=== PATIENT | female | born 1965 | race Caucasian/White ===

== ENCOUNTER 2023-01-20 14:00 | Outpatient (RCR) | payer OTHER, BC, SELFPAY | END 2023-05-01 11:03 | disposition home or self-care (01) | PROVIDERS: PCP Family Medicine; Visit Provider Physician Assistant | DX: M54.12 Radiculopathy, cervical region (principal); Z51.89 Encounter for other specified aftercare | CPT/HCPCS: 97110; 97140; 97162; 97530 ==

== ENCOUNTER 2023-06-12 09:05 | Outpatient (CLI) | payer OTHER, BC, SELFPAY ==
--- OUTSIDE RECORDS SUMMARY | 2023-06-12 09:08 | XMS_ITS | Patient Health Record ---
Author Name Unknown Organization [facility] Address [address] [facility] [address] [place] [address] Care Team Providers Care Rap Artist Name Role Phone Hayden Angelo Primary Care Provider UnavailMick Kelly Unavailable [phone] Misael Wood PA-C Unavailable Unavailable Carlos Duncan Unavailable [phone] Kray Birmingham Unavailable [phone] Vicki Castanon Unavailable [phone] Ruth Crespo Unavailable [phone] Ingrid Constantino Unavailable [phone] ALLERGIES No Known Allergies REASON FOR REFERRAL Reason 03/14 Submitted onli ne with [facility] PT and OT: [facility] CERVICAL Diagnosis 1 Neck pain (M54.2) Diagnosis 2 Dorsalgia, unspecifi ed (M54.9) Diagnosis 3 Radiculopathy, cervi elvis region (M54.12) Referral Organization [facility] Referring Provider First Name Mick Referring Provider Last Name Stewart Referring Provider Speciality Occupation al Medicine Referred Organization [facility] Referred Provider Brenna Capps Referred Address [address] [facility] [address],[place], [place],[address], Referred Provider Specialty Rehabilitati on General Notes Joellen Suarez 023 10:40:45 AM >Submited to DOL [id number] Becki 04/02/2023 02:43:35 PM >revieved DOl pa auth # [id number] ok to Moriah glez Katie 04/14/2023 10:02:26 AM >Therapy is already scheduled. Referral Priority Routine Reason WC DOL cpt code 9716 3 and 96669 x1 each , cpt code 90320 x72, cpt code 56632 x24 and 42108 x24 Diagnosis 1 Radiculopathy, cervi elvis region (M54.12) Referral Organization [facility] Referring Provider First Name Mick Referring Provider Last Name Stewart Referring Provider Speciality Occupation al Medicine Referred Organization [facility] Referred Provider Mick William Referred Address [address] [place] [address],[place], [place],[address], Referred Provider Specialty Occupational Medicine Referral Priority Routine MEDICATIONS Medication SIG (Take, Route, Fr equency, Duration) Notes Start Date End Date Status Naproxen 250 MG 1 tablet with food o r milk Orally Twice a day Active hydrOXYzine HCl 25 MG 1 tablet as needed Orally every 8 hrs Active BuPROPion HBr 2x/day Active SOCIAL HISTORY Sex Assigned At : Social History Observation Description Sex Assigned At Unknown PROBLEMS Problem Type ICD Code Onset Dates Problem Status W/U Status Risk SNOMED Code Notes Problem Radiculopathy, cervical region (M54.12) Active confirmed Cervical radiculopathy (51108470) Problem Dorsalgia, unspecified (M54.9) Active confirmed Backache (413557050) Problem Neck pain (M54.2) Active confirmed Neck pain (34178702) VITAL SIGNS Blood pressure diastolic 86 mm Hg 03/14/2023 Height 5ft 7in in 03/14/2023 Blood pressure systolic 124 mm Hg 03/14/2023 Weight 186.6 lbs 03/14/2023 BMI 29.22 kg/m2 03/14/2023 Encounters Encounter Location Date Provider Diagnosis [facility] [address] [place] [address] [address] [place] [address] 03/14/2023 Mick William [facility] [address] [place] [address] [address] [place] [address] 01/08/2023 Carlos Duncan [facility] [address] [place] [address] 04/22/2023 Ingrid Constantino Radiculopathy, cervical region M54.12 ; Neck pain M54.2 and Dorsalgia, unspecified M54.9 [facility] [address] [place] [address] 04/24/2023 Vicki Teachout Neck pain M54.2 ; Dorsalgia, unspecified M54.9 and Radiculopathy, cervical region M54.12 [facility] [address] [facility] [place] [address] 04/30/2023 Kary Birmingham Dorsalgia, unspecified M54.9 and Radiculopathy, cervical region M54.12 [facility] [address] [facility] [place] [address] 05/02/2023 Kary Birmingham [facility] [address] [facility] [place] [address] 05/09/2023 Ingrid Becken Dorsalgia, unspecified M54.9 and Radiculopathy, cervical region M54.12 [facility] [address] [place] [address] 05/13/2023 Ruth Crespo [facility] [address] [place] [address] 05/15/2023 Vicki Teachout [facility] [address] [facility] [place] [address] 05/19/2023 Ruth Crespo [facility] [address] [place] [address] 05/21/2023 Ruth Crespo [facility] [address] [place] [address] 05/26/2023 Ruth Crespo Dorsalgia, unspecified M54.9 and Radiculopathy, cervical region M54.12 [facility] [address] [place] [address] 05/29/2023 Vicki Teachout Dorsalgia, unspecified M54.9 ; Cervicalgia M54.2 and Radiculopathy, cervical region M54.12 [facility] [address] [facility] [place] [address] 06/03/2023 Ingrid Becken Dorsalgia, unspecified M54.9 ; Cervicalgia M54.2 and Radiculopathy, cervical region M54.12 [facility] [address] [place] [address] 06/06/2023 Ingrid Banguraderek Dorsalgia, unspecified M54.9 ; Cervicalgia M54.2 and Radiculopathy, cervical region M54.12 [facility] [address] [place] [address] 06/10/2023 Ruth Cherie Dorsalgia, unspecified M54.9 ; Cervicalgia M54.2 and Radiculopathy, cervical region M54.12 [facility] [address] [place] [address] 03/14/2023 Mick William Neck pain M54.2 ; Dorsalgia, unspecified M54.9 and Radiculopathy, cervical region M54.12 ASSESSMENTS Encounter Date Diagnosis Assessment Notes Treatment Notes Treatment Clinical Notes 03/14/2023 Dorsalgia, unspecified (ICD-10 - M54.9) 03/14/2023 Neck pain (ICD-10 - M54.2) 04/22/2023 Radiculopathy, cervical region (ICD-10 - M54.12) 04/24/2023 Dorsalgia, unspecified (ICD-10 - M54.9) 04/24/2023 Neck pain (ICD-10 - M54.2) 05/09/2023 Radiculopathy, cervical region (ICD-10 - M54.12) 05/09/2023 Dorsalgia, unspecified (ICD-10 - M54.9) 05/26/2023 Radiculopathy, cervical region (ICD-10 - M54.12) 05/26/2023 Dorsalgia, unspecified (ICD-10 - M54.9) 04/22/2023 Neck pain (ICD-10 - M54.2) 05/29/2023 Cervicalgia (ICD-10 - M54.2) 05/29/2023 Dorsalgia, unspecified (ICD-10 - M54.9) 06/03/2023 Cervicalgia (ICD-10 - M54.2) 06/03/2023 Dorsalgia, unspecified (ICD-10 - M54.9) 06/06/2023 Cervicalgia (ICD-10 - M54.2) 06/06/2023 Dorsalgia, unspecified (ICD-10 - M54.9) 06/10/2023 Cervicalgia (ICD-10 - M54.2) 06/10/2023 Dorsalgia, unspecified (ICD-10 - M54.9) 04/30/2023 Radiculopathy, cervical region (ICD-10 - M54.12) 04/30/2023 Dorsalgia, unspecified (ICD-10 - M54.9) 03/14/2023 Radiculopathy, cervical region (ICD-10 - M54.12) 06/10/2023 Radiculopathy, cervical region (ICD-10 - M54.12) 06/06/2023 Radiculopathy, cervical region (ICD-10 - M54.12) 06/03/2023 Radiculopathy, cervical region (ICD-10 - M54.12) 04/24/2023 Radiculopathy, cervical region (ICD-10 - M54.12) 05/29/2023 Radiculopathy, cervical region (ICD-10 - M54.12) 04/22/2023 Dorsalgia, unspecified (ICD-10 - M54.9) 03/14/2023 Other I, Zion calles, am serving as a scribe to document services personally performed by Mick William MD, based upon my observations and the provider's statements to me. All documentation has been reviewed by the aforementioned doctor prior to being entered into the official medical record. I, Mick William MD attest that the above named individual is acting in scribe capacity, has observed my performance of the services and has documented them in accordance with my direction. The documentation recorded by the scribe accurately reflects the service I personally performed and the decisions made by me. PLAN OF TREATMENT Next Appt Details Provider Name:Kary hodgson, 06/30/2023 09:00:00 AM, [address] [place], [address], Provider Name:Ruth botello, 07/02/2023 07:00:00 AM, [address], [place], [address], Insurance Providers Payer Name Payer Address Payer Phone Subscriber Number Group Number Insured Name Patient Relationship to Insured Coverage Start Date Coverage End Date Department of [facility] [address] [place] [address] [phone] [id number] Elizabeth Bowser Self - patient is the insured MEDICAL (GENERAL) HISTORY Medical History History ICD Code Migraines Sleep Apnea Headaches Surgical History Surgery Date(Month/Year) 2 C-Sections
--- OUTSIDE RECORDS SUMMARY | 2023-06-12 09:08 | XMS_ITS | Clinical Summary ---
Author Name Unknown Organization [facility] Address [address], [place] [address] Care Team Providers Care Cracking Machine Operator Name Role Phone Luci Bronson PA-C Primary Care Provider [phone] Source Comments You are receiving this document as you are listed as the primary care provider,follow-up provider, or the patient has been referred to you for consultation.This is in compliance with the Medicare and[facility] EHR Incentive Program,which states Providers who transition their patient to another setting of careor provider of care or refers their patient to another provider of care shouldprovide summary care record for each transition of care or referral. [facility] Allergies No known active allergies Medications Medication Sig Dispensed Refills Start Date End Date Status modafinil (PROVIGIL) 200 MG tablet Take 1-2 tablets during the day. She can split the dose, but her last dose should not be after 12 noon. 60 Tab 2 04/15/2017 Active Active Problems Problem Noted Date Diagnosed Date Obstructive sleep apnea on CPAP 01/21/2017 Overview: Setting: APAP 5-15 Supplied by: [facility]: [facility] RDI 31 Lowest O2 Sat: 94% [place] New/nasal 01-17-17; 04/15/17 compliant Social History Tobacco Use Types Packs/Day Years Used Date Smoking Tobacco: Some Days Cigarettes Smokeless Tobacco: Never Sex and Gender Information Value Date Recorded Sex Assigned at Not on file Gender Identity Not on file Sexual Orientation Not on file Last Filed Vital Signs Vital Sign Reading Time Taken Comments Blood Pressure 144/95 04/15/2017 9:21 AM WATER TAXI OPERATOR Pulse 78 04/15/2017 9:21 AM WATER TAXI OPERATOR Temperature - - Respiratory Rate - - Oxygen Saturation 99% 04/15/2017 9:21 AM WATER TAXI OPERATOR Inhaled Oxygen Concentration - - Weight 89.1 kg (196 lb 6.4 oz) 04/15/2017 9:21 A M WATER TAXI OPERATOR Height 170.2 cm (5' 7) 04/15/2017 9:21 AM WATER TAXI OPERATOR Body Mass Index 30.76 04/15/2017 9:21 AM WATER TAXI OPERATOR Plan of Treatment Health Maintenance Due Date Last Done Comments Cervical Cancer Screening Due 1965 Colon Cancer Screening Plan Due 1965 Hep C Screening (Preventive Services) 1965 HepB (1) 1965 Mammogram 1963 COVID-19 Vaccine (#1) 04/11/1964 HIV Screening (Preventive Services) 1979 Adult Preventive Visit 10/10/1981 DTaP/Tdap/Td (1 - Tdap) 10/10/1982 Cholesterol 10/10/2008 Zoster/Shingles (1 of 2) 10/10/2013 Influenza (#1) 2023 HepA Aged Out No longer eligi ble based on patient's age to complete this topic Hib Aged Out No longer eligi ble based on patient's age to complete this topic IPV (Polio) Aged Out No longer eligi ble based on patient's age to complete this topic MCV4 Aged Out No longer eligi ble based on patient's age to complete this topic Pneumococcal Aged Out No longer eligi ble based on patient's age to complete this topic Care Teams Cracking Machine Operator Relationship Specialty Start Date End Date Luci Bronson PA-C [address] [place] [address] PCP - General Physician Registered Dietitian 01/17/17
--- OUTSIDE RECORDS SUMMARY | 2023-06-12 09:08 | XMS_ITS | Clinical Summary ---
Author Name Unknown Organization [facility] Address [place], [place] [address] Care Team Providers Care Bobbin Collector Name Role Phone Murphy Angelo MD Primary Care Provider [phone] Sherri Long LOBBYIST Unavailable [phone] Ricardo Lassiter RN Unavailable Rodolfo Emerson RD Unavailable [phone] Unavailable [phone] Allergies No known active allergies Medications Medication Sig Dispensed Refills Start Date End Date Status multivit with minerals/lutein (MULTIVITAMIN 50 PLUS ORAL) Take by mouth. 0 Active buPROPion (WELLBUTRIN SR) 150 mg Sustained-Release tabletIndications:Obe sity (BMI 30-39.9),Tobacco use Take 1 Tablet (150 mg) by mouth two times daily. 180 Tablet 3 08/06/2022 Active Active Problems Problem Noted Date Diagnosed Date Overweight 08/06/2022 Prediabetes 08/06/2022 Social History Tobacco Use Types Packs/Day Years Used Date Smoking Tobacco: Some Days Smokeless Tobacco: Never Tobacco Cessation:Ready to Q uit: No; Counseling Given: No Comments:Occasionally Alcohol Use Standard Drinks/Week Comments Yes 0 (1 standard drink = 0.6 oz pur e alcohol) very rarely PHQ-2 Answer Date Recorded PHQ-2 TOTAL SCORE 0 01/30/2022 Social Connections Answer Date Recorded Frequency of Communication with Friends and Fami ly 0 08/05/2022 Financial Resource Strain Answer Date R ecorded Difficulty of Paying Living Expenses 3 08/05/2022 Difficulty of Paying Living Expenses Not on file 08/05/2022 Food Insecurity Answer Date Recorded Worried About Running Out of Food in the Last Ye ar 1 08/05/2022 Transportation Needs Answer Date Record ed Lack of Transportation (Medical) 1 08/05/2022 Housing Stability Answer Date Recorded Unable to Pay for Housing in the Last Year 1 08/05/2022 Sex and Gender Information Value Date Recorded Sex Assigned at Not on file Gender Identity Not on file Sexual Orientation Not on file Obstetrics History Last Filed Vital Signs Vital Sign Reading Time Taken Comments Blood Pressure 133/85 08/06/2022 3:46 PM CDT Pulse 77 08/06/2022 3:46 PM CDT Temperature 36.7 ??C (98.1 ??F) 07/15/2017 1:44 AM CD T Respiratory Rate 20 07/15/2017 1:44 AM CDT Oxygen Saturation 99% 08/06/2022 3:46 PM CDT Inhaled Oxygen Concentration - - Weight 79.6 kg (175 lb 6.4 oz) 08/06/2022 3:46 P M CDT Height 168.3 cm (5' 6.26) 08/06/2022 3:46 PM CD T Body Mass Index 28.09 08/06/2022 3:46 PM CDT Plan of Treatment Health Maintenance Due Date Last Done Comments Pneumococcal series for age 6-64 (1 of 2 - PCV) 10/10/1969 Tdap 10/10/1974 Tetanus booster 1983 Colonoscopy through age 75 10/10/2008 Mammogram for age 45-75 10/10/2008 Zoster (shingles) series for age 50+ (1 of 2) 10/10/2013 Pap test for age 21-65 02/28/2014 02/28/2011 COVID-19 vaccine series ( season) 2023 01/06/2021, 12/17/2020 Influenza for age 50-64 01/03/2023 Depression screening for age 12+ 01/30/2023 01/31/20 22, 01/30/2022 BMI (ht and wt on same day) for age 18+ 08/07/2023 08/06/2022, 03/08/2022, 02/28/2022, Additional history exists Lipids for age 45-75 08/07/2027 08/06/2022 HIV for age 15-65 Completed 08/06/2022 Hepatitis C screening for ag e 18-79 Completed 08/06/2022 Care Teams Bobbin Collector Relationship Specialty Start Date End Date Murphy Angelo MD PCP - General Family Practice 01/02/22 Sherri Long NP [address] [facility] [place] [id number] Nurse Practitioner - Family 01/30/22 Ricardo Lassiter, ALBERTA [address] [facility] [place] [address] Registered Nurse 01/30/[address] [facility] [place] [address] Remote Mortgage Underwriter 01/30/22 Priscilla Lizama, MARION [address] [facility] [place] [address] Remote Mortgage Underwriter 01/30/22
--- OUTSIDE RECORDS SUMMARY | 2023-06-12 09:09 | XMS_ITS | Data Portability ---
Author Name Unknown Address [address] [place] [address] Phone [phone] Organization [facility] Address [address] [address] Assessment No assessment recorded. Plan of Treatment Reminders Order Date Submit Date Provider Last Modified By Organization Details Last Modified Time Details Appointments None record ed. Lab None record ed. Referral None record ed. Procedures None record ed. Surgeries None record ed. Imaging None record ed. Medication Orders None record ed. Patient TargetsNo targets recorded. Patient Instructions Encounter Date Encounter Id Patient Instructions Last Modified By Organization Details Last Modified Time 04/12/2020 [id number] neck pain: care instructions [email or web address] Not available 04/12/2020 22:36:48 cervical spondylosis: care instructions [email or web address] Not available 04/12/2020 22:36:48 neck arthritis: exercises [email or web address] Not available 04/12/2020 22:36:48 cervical spinal stenosis: care instructions [email or web address] Not available 05/29/2021 17:57:05 Reason for Referral Physical Therapist Referral for Cervical spondylosis Referring Physician: Adelita Sky, Sports Medicine, Encounter Date: 06/21/2020 Results Created Date Observation Date Name Description Value Unit Range Abnormal Flag LastModifiedBy Organization Detail LastModifiedTime 02/16/2011/09/2019 MRI, cervi elvis spine , w/o contr ast No observ ation record ed. [email or web address] Not Available 02/17/2020 09:36:08 02/16/2011/09/2019 MRI, cervi elvis spine , w/o contr ast No observ ation record ed. [email or web address] Not Available 02/17/2020 09:36:08 Result Notes None recorded. Procedures Surgical History None recorded. Imaging Results Imaging Date Name Status LastModified by Organiz ation Details LastModified Time 11/09/2019 MRI, cervical spine, w/o contrast completed [email or web address] Information not available 02/17/2020 09:36:08 11/09/2019 MRI, cervical spine, w/o contrast completed Information not available 02/17/2020 09:36:08 Procedure Notes None recorded. Medical Equipment None Reported. Allergies No known drug allergies Medications Name Sig Start Date Stop Date Status Note LastModified by Organization Details LastModified Time hydrocodone 5 mg-acetamino phen 325 mg tablet Take 1 tablet every 6 hours by oral route as needed. 2020 active Not Available Not Available Not Avai lable cephalexin 500 mg capsule Take 4 capsules (total of 2g) po one hour prior to procedure. One time dose. 2020 active Not Available Not Available Not Avai lable diazepam 10 mg tablet Take 1 tablet(s) 30 mins PRIOR to appointment PRN and repeat as directed by physician. 2019 active Not Available Not Available Not Avai lable cholecalcife rol (vitamin D3) 1,250 mcg (50,000 unit) capsule Take 1 capsule every week by oral route. 2019 active Not Available Not Available Not Avai lable Vitals Date Recorded Body height Provider Name an d Address Organization Details Last Updated DateTime 04/12/2020 170.18 cm Scott Crespo [address], [address], [place] 04/12/2020 15:20:59 Date Recorded Body mass index (BMI) Body weight Provider Name and Address Organization Details Last Updated DateTime 04/12/2020 28.2 kg/m2 58787.63 g Scott Cherie [address], [address], [place] 04/12/2020 15:21:16 Social History None recorded. Functional Status None recorded. Mental Status None recorded. Family History Nothing Reported. Medical History No medical history recorded. Gynecological HistoryNo gynecological history recorded. Obstetrics History GPAL:G 0 P 0 0 0 0 Past Encounters Encounter ID Performer Location Encounter Start Date Encounter Closed Date Diagnosis/Indication [id number] Adelita Sky MD [facility] [address] [place] [address] 04/12/2020 22:33:54 04/13/2020 07:54:45 Cervical spondylosis Neck pain Cervical disc disorder with radiculopathy Spinal stenosis in cervical region Displacement of cervical intervertebral disc Health Concerns Section Related Observation LastModified by Organization Detai ls LastModified Time None Recorded Concern Status LastModified by Organization Details LastModified Time None Recorded Advance Directives Directive None Recorded Payers Encounter Date Sequence Insurance Name Policy Number Policy Amezquita Covered Member ID Amezquita Member ID Guarantor Name 04/12/2020 1 *SELF PAY* Phuong Bowser Notes Date Note Type Note Provider Name and Address Organization Details Recorded Time 04/12/2020 text/html HPI Notes: Please [place] [address] [facility], [place], [address], [facility], [facility] 05/29/2021 17:57:09 OBGyn Episode No OBEpisode recorded.
== END 2023-06-12 09:06 | disposition home or self-care (01) ==
PROVIDERS: PCP Family Medicine; Visit Provider Physician Assistant
DX: Z01.419 Encounter for gynecological examination (general) (routine) without abnormal findings (principal); Z12.4 Encounter for screening for malignant neoplasm of cervix; Z13.6 Encounter for screening for cardiovascular disorders; Z13.1 Encounter for screening for diabetes mellitus; Z13.29 Encounter for screening for other suspected endocrine disorder
CPT/HCPCS: 80061; 82947; 84443

== ENCOUNTER 2023-07-02 12:43 | Outpatient (RCR) | payer BC, SELFPAY | END 2023-10-30 23:59 | disposition home or self-care (01) | PROVIDERS: PCP Family Medicine; Visit Provider Family Medicine | DX: M25.561 Pain in right knee (principal); R60.0 Localized edema; Z51.89 Encounter for other specified aftercare | CPT/HCPCS: 97035; 97110; 97162 ==

== ENCOUNTER 2023-09-22 15:09 | Outpatient (CLI) | payer BC, SELFPAY ==
--- OUTSIDE RECORDS SUMMARY | 2023-09-22 15:12 | XMS_ITS | Patient Health Record ---
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 Examiner Name Role Phone Hayden Angelo Primary Care Provider Unavailabl Mick Crawford Unavailable [phone] Israel BANNER Misael SALAZAR Unavailable Unavailab Carlos Bowen Unavailable [phone] Nury Arteaga Unavailable [phone] Pascale Rodrigues Unavailable [phone] Wilson Manriquez Unavailable [phone] Kary Birmingham Unavailable [phone] Vicki Castanon Unavailable [phone] Ruth Crespo Unavailable [phone] Yoile Wang Unavailable [phone] Ingrid Constantino Unavailable [phone] Ying Dawn Unavailable [phone] ALLERGIES No Known Allergies REASON FOR REFERRAL Reason 03/14 [facility]: [facility] CERVICAL Diagnosis 1 Neck pain (M54.2) Diagnosis 2 Dorsalgia, unspecifi ed (M54.9) Diagnosis 3 Radiculopathy, cervi elvis region (M54.12) Referral Organization [facility] Referring Provider First Name Mick Referring Provider Last Name Stewart Referring Provider Speciality Occupation al Medicine Referred Organization [facility] Referred Provider Brenna Capps Referred Address [address], [place],[address], Referred Provider Specialty Rehabilitati on General Notes Joellen Suarez 023 10:40:45 AM >Submited to DOL [id number], Daniela Joellen 04/02/2023 02:43:35 PM >revieved DOl pa auth # [id number] ok to [place] Jane Majorie 04/14/2023 10:02:26 AM >Therapy is already scheduled. Referral Priority Routine Reason WC DOL cpt code 9716 3 and 86049 x1 each , cpt code 57371 x72, cpt code 74792 x24 and 24823 x24 Diagnosis 1 Radiculopathy, cervi elvis region (M54.12) Referral Organization [facility] Referring Provider First Name Mick Referring Provider Last Name Stewart Referring Provider Speciality Occupation al Medicine Referred Organization [facility] Referred Provider Mick William Referred Address [address] [facility] [facility],[place],[address], Referred Provider Specialty Occupational Medicine Referral Priority Routine MEDICATIONS Medication SIG (Take, Route, Frequency, Duration) Notes Start Date End Date Status Multivitamin Active Fish Oil Active SOCIAL HISTORY Tobacco Use: Social History Observation Description Date Details (start date - stop date) Current Smoker NA - NA Sex Assigned At : Social History Observation Description Sex Assigned At Unknown Tobacco Use/Smoking: Question Answer Notes Are you a current smoker How often do you smoke cigarettes? every day How many cigarettes a day do you smoke? 5 or les s How soon after you wake up do you smoke your fir st cigarette? after 60 minutes Are you interested in quitting? Not ready to megan t Alcohol Screen Question Answer Notes Did you have a drink containing alcohol in the p ast year? No Points 0 Interpretation Negative PROBLEMS Problem Type ICD Code Onset Dates Problem Status W/U Status Risk SNOMED Code Notes Problem Radiculopathy, cervical region (M54.12) Active confirmed Cervical radiculopathy (71696012) Problem Cervicalgia (M54.2) Active confirmed Cervicalgia (64224569) Problem Dorsalgia, unspecified (M54.9) Active confirmed Backache (500615399) Problem Neck pain (M54.2) Active confirmed Neck pain (86817415) VITAL SIGNS Blood pressure diastolic 84 mm Hg 08/26/2023 Height 67 in 08/26/2023 Blood pressure systolic 124 mm Hg 08/26/2023 Weight 198.8 lbs 08/26/2023 BMI 31.13 kg/m2 08/26/2023 Encounters Encounter Location Date Provider Diagnosis [facility] [address] [place] [address] 01/08/2023 Carlos Duncan [facility] [address] [facility] [place] [address] 03/14/2023 Mick William Neck pain M54.2 ; Dorsalgia, unspecified M54.9 and Radiculopathy, cervical region M54.12 [facility] [address] [place] [address] 03/14/2023 Mick William [facility] [address] [place] [address] 04/22/2023 Ingrid Becken Radiculopathy, cervical region M54.12 ; Neck pain M54.2 and Dorsalgia, unspecified M54.9 [facility] [address] [place] [address] 04/24/2023 Vicki Castanon Neck pain M54.2 ; Dorsalgia, unspecified M54.9 and Radiculopathy, cervical region M54.12 [facility] [address] [facility] [facility] [place] [address] 04/30/2023 Kary Birmingham Dorsalgia, unspecified M54.9 and Radiculopathy, cervical region M54.12 [facility] [address] [facility] [place] [address] 05/02/2023 Kary Birmingham [facility] [address] [place] [address] 05/09/2023 Ingrid Beck[place] Dorsalgia, unspecified M54.9 and Radiculopathy, cervical region M54.12 [facility] [address] [place] [address] 05/13/2023 Ruth Crespo [facility] [address] [facility] [place] [address] 05/15/2023 Vicki Castanon [facility] [address] [place] [address] 05/19/2023 Ruth Crespo [facility] [address] [facility] [place] [address] 05/21/2023 Ruth Crespo [facility] [address] [place] [address] 05/26/2023 Ruth Crespo Dorsalgia, unspecified M54.9 and Radiculopathy, cervical region M54.12 [facility] [address] [place] [address] 05/29/2023 Vicki Teachout Dorsalgia, unspecified M54.9 ; Cervicalgia M54.2 and Radiculopathy, cervical region M54.12 [facility] [address] [place] [address] 06/03/2023 Ingrid [place] Dorsalgia, unspecified M54.9 ; Cervicalgia M54.2 and Radiculopathy, cervical region M54.12 [facility] [address] [place] [address] 06/06/2023 Ingrid Becken Dorsalgia, unspecified M54.9 ; Cervicalgia M54.2 and Radiculopathy, cervical region M54.12 [facility] [address] [facility] [place] [address] 06/10/2023 Ruth Crespo Dorsalgia, unspecified M54.9 ; Cervicalgia M54.2 and Radiculopathy, cervical region M54.12 [facility] [address] [place] [address] 06/25/2023 Kary Birmingham [facility] [address] [place] [address] 06/25/2023 Mick William [facility] [address] [place] [address] 06/30/2023 Kary Birmingham Dorsalgia, unspecified M54.9 ; Cervicalgia M54.2 and Radiculopathy, cervical region M54.12 [facility] [address] [place] [address] 07/02/2023 Ruth Crespo [facility] [address] [place] [address] 07/02/2023 Nury Arteaga Dorsalgia, unspecified M54.9 ; Cervicalgia M54.2 and Radiculopathy, cervical region M54.12 [facility] [address] [place] [address] 07/09/2023 Yolie Felipe Dorsalgia, unspecified M54.9 ; Cervicalgia M54.2 and Radiculopathy, cervical region M54.12 [facility] [address] [place] [address] 07/11/2023 Mick William [facility] [address] [place] [address] 07/11/2023 Ying Dwan Dorsalgia, unspecified M54.9 ; Cervicalgia M54.2 and Radiculopathy, cervical region M54.12 [facility] [address] [place] [address] 07/11/2023 Mick William Dorsalgia, unspecified M54.9 ; Cervicalgia M54.2 and Radiculopathy, cervical region M54.12 [facility] [address] [place] [address] 07/15/2023 Wilson Narveson Dorsalgia, unspecified M54.9 ; Cervicalgia M54.2 and Radiculopathy, cervical region M54.12 [facility] [address] [place] [address] 07/23/2023 Yolie Oden Dorsalgia, unspecified M54.9 ; Cervicalgia M54.2 and Radiculopathy, cervical region M54.12 [facility] [address] [place] [address] 08/12/2023 Wilson Narveson Dorsalgia, unspecified M54.9 ; Cervicalgia M54.2 and Radiculopathy, cervical region M54.12 [facility] [address] [place] [address] 08/15/2023 Nury Arteaga Dorsalgia, unspecified M54.9 ; Cervicalgia M54.2 and Radiculopathy, cervical region M54.12 [facility] [address] [place] [address] 08/15/2023 Mick William [facility] [address] [place] [address] 08/18/2023 Yolie Wang Dorsalgia, unspecified M54.9 ; Cervicalgia M54.2 and Radiculopathy, cervical region M54.12 [facility] [address] [place] [address] 08/19/2023 Carlos Duncan [facility] [address] [place] [address] 08/26/2023 Mick William Cervicalgia M54.2 ; Dorsalgia, unspecified M54.9 and Radiculopathy, cervical region M54.12 [facility] [address] [facility] [place] [address] 08/28/2023 Nury Arteaga [facility] [address] [place] [address] 09/02/2023 Pascale Rodrigues [facility] [address] [place] [address] 09/08/2023 Kary Birmingham Dorsalgia, unspecified M54.9 and Cervicalgia M54.2 [facility] [address] [facility] [place] [address] 09/09/2023 Wilson Manriquez [facility] [address] [place] [address] 09/09/2023 Mick William [facility] [address] [place] [address] [address] [place] [address] 09/18/2023 Mick William [facility] [address] [facility] [place] [address] 09/19/2023 Wilson Manriquez Dorsalgia, unspecified M54.9 and Cervicalgia M54.2 ASSESSMENTS Encounter Date Diagnosis Assessment Notes Treatment Notes Treatment Clinical Notes 03/14/2023 Dorsalgia, unspecified (ICD-10 - M54.9) 03/14/2023 Neck pain (ICD-10 - M54.2) 04/22/2023 Radiculopathy, cervical region (ICD-10 - M54.12) 04/22/2023 Neck pain (ICD-10 - M54.2) 04/24/2023 Dorsalgia, unspecified (ICD-10 - M54.9) 04/24/2023 Neck pain (ICD-10 - M54.2) 04/30/2023 Radiculopathy, cervical region (ICD-10 - M54.12) 04/30/2023 Dorsalgia, unspecified (ICD-10 - M54.9) 05/09/2023 Radiculopathy, cervical region (ICD-10 - M54.12) 05/09/2023 Dorsalgia, unspecified (ICD-10 - M54.9) 05/26/2023 Radiculopathy, cervical region (ICD-10 - M54.12) 05/26/2023 Dorsalgia, unspecified (ICD-10 - M54.9) 05/29/2023 Cervicalgia (ICD-10 - M54.2) 05/29/2023 Dorsalgia, unspecified (ICD-10 - M54.9) 06/03/2023 Cervicalgia (ICD-10 - M54.2) 06/03/2023 Dorsalgia, unspecified (ICD-10 - M54.9) 06/06/2023 Cervicalgia (ICD-10 - M54.2) 06/06/2023 Dorsalgia, unspecified (ICD-10 - M54.9) 06/10/2023 Cervicalgia (ICD-10 - M54.2) 06/10/2023 Dorsalgia, unspecified (ICD-10 - M54.9) 07/02/2023 Cervicalgia (ICD-10 - M54.2) 07/02/2023 Dorsalgia, unspecified (ICD-10 - M54.9) 07/09/2023 Cervicalgia (ICD-10 - M54.2) 07/09/2023 Dorsalgia, unspecified (ICD-10 - M54.9) 07/11/2023 Cervicalgia (ICD-10 - M54.2) 07/11/2023 Dorsalgia, unspecified (ICD-10 - M54.9) 07/15/2023 Cervicalgia (ICD-10 - M54.2) 07/15/2023 Dorsalgia, unspecified (ICD-10 - M54.9) 07/23/2023 Cervicalgia (ICD-10 - M54.2) 07/23/2023 Dorsalgia, unspecified (ICD-10 - M54.9) 08/12/2023 Dorsalgia, unspecified (ICD-10 - M54.9) 08/18/2023 Cervicalgia (ICD-10 - M54.2) 08/18/2023 Dorsalgia, unspecified (ICD-10 - M54.9) 08/26/2023 Cervicalgia (ICD-10 - M54.2) 09/08/2023 Cervicalgia (ICD-10 - M54.2) 09/08/2023 Dorsalgia, unspecified (ICD-10 - M54.9) 09/19/2023 Cervicalgia (ICD-10 - M54.2) 09/19/2023 Dorsalgia, unspecified (ICD-10 - M54.9) 08/15/2023 Cervicalgia (ICD-10 - M54.2) 08/15/2023 Dorsalgia, unspecified (ICD-10 - M54.9) 07/11/2023 Cervicalgia (ICD-10 - M54.2) 07/11/2023 Dorsalgia, unspecified (ICD-10 - M54.9) 06/30/2023 Cervicalgia (ICD-10 - M54.2) 06/30/2023 Dorsalgia, unspecified (ICD-10 - M54.9) 08/12/2023 Cervicalgia (ICD-10 - M54.2) 06/30/2023 Radiculopathy, cervical region (ICD-10 - M54.12) 07/11/2023 Radiculopathy, cervical region (ICD-10 - M54.12) 08/15/2023 Radiculopathy, cervical region (ICD-10 - M54.12) 08/26/2023 Dorsalgia, unspecified (ICD-10 - M54.9) 08/18/2023 Radiculopathy, cervical region (ICD-10 - M54.12) 07/23/2023 Radiculopathy, cervical region (ICD-10 - M54.12) 07/15/2023 Radiculopathy, cervical region (ICD-10 - M54.12) 07/11/2023 Radiculopathy, cervical region (ICD-10 - M54.12) 07/09/2023 Radiculopathy, cervical region (ICD-10 - M54.12) 07/02/2023 Radiculopathy, cervical region (ICD-10 - M54.12) 06/10/2023 Radiculopathy, cervical region (ICD-10 - M54.12) 06/06/2023 Radiculopathy, cervical region (ICD-10 - M54.12) 06/03/2023 Radiculopathy, cervical region (ICD-10 - M54.12) 05/29/2023 Radiculopathy, cervical region (ICD-10 - M54.12) 04/24/2023 Radiculopathy, cervical region (ICD-10 - M54.12) 03/14/2023 Radiculopathy, cervical region (ICD-10 - M54.12) 04/22/2023 Dorsalgia, unspecified (ICD-10 - M54.9) 08/12/2023 Radiculopathy, cervical region (ICD-10 - M54.12) 08/26/2023 Radiculopathy, cervical region (ICD-10 - M54.12) 03/14/2023 Other Zion Gutierrez, am serving as a scribe to document services personally performed by Mick William MD, based upon my observations and the provider's statements to me. All documentation has been reviewed by the aforementioned doctor prior to being entered into the official medical record. Mick Gutierrez MD attest that the above named individual is acting in scribe capacity, has observed my performance of the services and has documented them in accordance with my direction. The documentation recorded by the scribe accurately reflects the service I personally performed and the decisions made by me. 07/11/2023 Other I, Carroll Hameed, am serving as a scribe to document [...] performed and the decisions made by me. 08/26/2023 Other I, Aly Bri , am serving as a scribe to document [...] PLAN OF TREATMENT Next Appt Details Provider Name:Pascale calles, 09/23/2023 10:00:00 AM, [address] [facility], [address], Provider Name:Wilson porras, 09/30/2023 10:00:00 AM, [address] [facility] [place], [address], Insurance Providers Payer Name Payer Address Payer Phone Subscriber Number Group Number Insured Name Patient Relationship to Insured Coverage Start Date Coverage End Date Department of Labor / [facility] [address] [place] [address] [id number] [employer], Employee MEDICAL (GENERAL) HISTORY Medical History History ICD Code Migraines Sleep Apnea Headaches Surgical History Surgery Date(Month/Year) 2 C-Sections Hospitalization History Reason Date(Month/Year) Surgical
--- OUTSIDE RECORDS SUMMARY | 2023-09-22 15:12 | XMS_ITS | Continuity of Care Document ---
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 Name Role Phone Sebastián Daley MD Unavailable Unavailable Allergies, Adverse Reactions, Alerts Substance Reaction Status Criticality No Known Allergies Active No Inform ation Medications Medication Instructions Dosage Effective Dates (start - stop) Status Comments No Drug Therapy Prescribed Procedures Procedure Date Office/Outpatient Visit,Est, Mod 2022 OFFICE/OUTPATIENT VISIT EST Phone Office/Outpatient Visit,Est, Mod 2022 Office/Outpatient Visit,Est, Mod 2019 OFFICE/OUTPATIENT VISIT EST Phone Office/Outpatient Visit,Est, Mod 2018 Office/Outpatient Visit,Est, Mod 2018 Office/Outpatient Visit,Est, Mod 2018 Office/Outpatient Visit,Est, Mod 2017 Office/Outpatient Visit,Est, Mod 2017 Office/Outpatient Visit,Est, Mod 2017 Office/Outpatient Visit,New, Mod 2017 Advance Directives Directive Yes / No Effective Date File Name No Information Encounters Encounter Description Practice Location Reason(s) For Visit Diagnoses Date Provider Providers Copied on Encounter [facility], [address], [place], [id number], [place] tel:[phone] [facility] [place] No Information 3 Edi Lowery. [facility], [address], [address], [place], [id number] , [place]. tel: [phone] Office/Outpat ient Visit,Est, Mod [facility], [address], [place], [place], [id number], [place] tel:[phone] [facility] [place] Cervicalgia 3 Juan Miranda. [facility], [address], [place], [address], [place]. tel: [phone] Referring Provider: Hayden Painter, [facility] [address], [place], [address]. tel:[phone] OFFICE/OUTPAT IENT VISIT EST Phone [facility], [address], [place], [place], [id number], [place] tel:[phone] [facility] No Information 3 Oswaldo English. [facility], [address], [place], [place], [id number] , [place]. tel: [phone] Office/Outpat ient Visit,Est, Mod [facility], [address], [place], [id number], [place] tel:[phone] [facility] Spinal stenosis, cervical region 3 Oswaldo English. [facility], [address], [place], [place], [id number] , [place]. tel: [phone] Office/Outpat ient Visit,Est, Mod [facility], [address], [place], [id number], [place] tel:[phone] [facility] Spinal stenosis, cervical region 0 Juan Miranda. [facility], [address], [place], [address], [place]. tel: [phone] OFFICE/OUTPAT IENT VISIT EST Phone [facility], [address], [place], [id number], [place] tel:[phone] [facility] No Information 0 Juan Miranda. [facility], [address], [place], [address], [place]. tel:[phone] Office/Outpat ient Visit,Est, Mod [facility], [address], [place], [id number], [place] tel:[phone] [facility] Cervical disc disorder at C6-C7 level with radiculopathy 9 Oswaldo Amador. [facility], [address], [place], [place], [id number] , [place]. tel: [phone] Office/Outpat ient Visit,Est, Mod [facility], [address], [place], [id number], [place] tel:[phone] [facility] Cervical disc disorder at C6-C7 level with radiculopathy 9 Oswaldo Amador. [facility], [address], [place], [id number] , [place]. tel: [phone] Office/Outpat ient Visit,Est, Mod [facility], [address], [place], [id number], [place] tel:[phone] [facility] Cervical disc disorder at C6-C7 level with radiculopathy 9 Oswaldo English. [facility], [address], [place], [place], [address] , [place]. tel: [phone] Office/Outpat ient Visit,Est, Mod [facility], [address], [place], [address], [place] tel:[phone] [facility] Cervical disc disorder at C6-C7 level with radiculopathy 8 Oswaldo English. [facility], [address], [place], [address] , [place]. tel: [phone] Office/Outpat ient Visit,Est, Mod [facility], [address], [place], [id number], [place] tel:[phone] [facility] [place] Cervical disc disorder at C6-C7 level with radiculopathy 8 Oswaldo English. [facility], [address], [place], [id number] , [place]. tel: [phone] Office/Outpat ient Visit,Est, Mod [facility], [address], [place], [id number], [place] tel:[phone] [facility] Radiculopathy, cervical region 8 Oswaldo English. [facility], [address] [place] [address] [address], [place], [id number] , [place]. tel: [phone] Office/Outpat ient Visit,New, Mod [facility], [address], [place], [id number], [place] tel:[phone] [facility] Doe Radiculopathy, cervical region 8 Israel Misael. [facility], [address] [place] [address] [address], [facility] [place], [id number] , [place]. tel: [phone] Family History Family Member Type Diagnosis Age At Onset No Information Payers Payer name Insurance type Covered green party ID Authoriza alyssa(s) [employer] Work Comp Ins [facility] [id number] [facility] [id number] Social History Type Description Quantity Date Captured Comments Sex Female Smoking Status No Information Chief Complaint And Reason For Visit No Information Reason For Referral Reason For Referral No Information History Of Present Illness Encounter Date Complaint History Of Prese nt Illness No Information Functional Status Date Functional Assessmen t No Information Medications Administered Medication Instructions Dosage Effective Dates (start - stop) Status Comments No Drug Therapy Prescribed Instructions Date Instruction Additional Infor mation No Information Assessments Type Assessment Date No Information Patient Care Teams Name Effective Dates (start - stop) Status Members No Information
--- OUTSIDE RECORDS SUMMARY | 2023-09-22 15:12 | XMS_ITS | Referral Summary ---
Author Name Unknown Organization [facility] Address [address] [place] [address] Care Team Providers Care Momd Teacher Name Role Phone Elsewhere, Pcp Primary Care Provider Unavailabl e Source Comments Patient records contain information from all sites at [facility]. For routine questions regarding patient records, call [phone] during business hours, M-F 8:00 AM - 5:00 PM Central Time. Record requests for emergency care only can be directed to [phone] at any time.[facility] Encounters Date Type Department Care Team Description 08/30/2023 11:34 AM CDT - 08/30/2023 2:46 PM CDT Emergency [place] [facility] [address] [place] [address] Clare Ruth D.O. Pain Chest (Primary Dx); Nausea And Vomiting; Diarrhea Discharge Disposition: Home or Self Care from Last 3 Months Allergies No known active allergies Medications Medication Sig Dispensed Refills Start Date End Date Status modafinil (for_PROVIGIL) 200 mg tablet Take 1-2 tablets during the day. She can split the dose, but her last dose should not be after 12 noon. 04/15/2017 Active ondansetron ODT (ZOFRAN-ODT) 4 mg disintegrating tablet Dissolve 1 tablet (4 mg total) in the mouth every 6 (six) hours as needed for nausea or vomiting. 10 tablet 08/30/2023 Active Active Problems Problem Noted Date Diagnosed Date Apnea Sleep Obstructive 01/21/2017 Overview: Overview: Setting: APAP 5-15 Supplied by: [facility] PSG done: 12-22-16 [facility] [place] AHI 19 RDI 31 Lowest O2 Sat: 94% [place] New/nasal 01-17-17; 04/15/17 compliant Immunizations Name Administration Dates Next Due Rho (D) Immune Globulin (IM only) 12/29/2002 Td Preservative Free (TENIVAC, DECAVAC) 06/12/19 18 Tdap 11/20/2009 Social History Tobacco Use Types Packs/Day Years Used Date Smoking Tobacco: Former Smokeless Tobacco: Never Nutrition Answer Date Recorded Nutrition: EVOO Fat Source 13 11/29 Nutrition: Servings of Fruits/Vegetables per Day Not on file 11/30/2019 Dental Answer Date Recorded Dental: Regular Dentist Unknown 07/08/19 21 Sex and Gender Information Value Date Recorded Sex Assigned at Not on file Gender Identity Not on file Sexual Orientation Not on file Last Filed Vital Signs Vital Sign Reading Time Taken Comments Blood Pressure 125/89 08/30/2023 2:45 PM CDT Pulse 87 08/30/2023 2:45 PM CDT Temperature 36.8 ??C (98.2 ??F) 08/30/2023 11:30 AM C DT Respiratory Rate 16 08/30/2023 2:45 PM CDT Oxygen Saturation 98% 08/30/2023 2:45 PM CDT Inhaled Oxygen Concentration - - Weight 88.2 kg (194 lb 6.4 oz) 08/30/2023 11:38 AM CDT Height - - Body Mass Index - - Plan of Treatment Not on file Procedures Procedure Name Priority Date/Time Associated Diagnosis Comments TROPONIN T, 2H/6H, 5TH GEN, P Timed 08/30/2023 2:12 PM CDT GI PATHOGEN PANEL, PCR, F Routine 08/30/2023 1:02 PM CDT DX CHEST AP OR PA AND LATERAL 2 VIEWS RAD - Semiurgent (Fast; most ED patients; some inpatients) 08/30/2023 12:18 PM CDT LIPASE, S/P STAT 08/30/2023 11:38 AM CDT TROPONIN T, BASELINE, 5TH GEN, P STAT 08/30/2023 11:38 AM CDT COMPREHENSIVE METABOLIC PANEL, S/P STAT 08/30/2023 11:38 AM CDT CBC WITH DIFFERENTIAL, B STAT 08/30/2023 11:38 AM CDT ECG STAT 08/30/2023 11:23 AM CDT EXTI LIPID PANEL, S Routine 08/06/2022 4 :23 PM CDT from Last 3 Months or Most Recently Relevant to Health Maintenance Results * Troponin T, 2h/6h, 5th Gen (08/30/2023 2:12 PM CDT) Troponin T, 2 hr, 5th gen <6 <=10 ng/L 08/30/2023 2:32 PM CDT NPRG 2H Delta 0 ng/L 08/30/2023 2:32 PM CDT NPRG 2H Delta Interp Not Changing 08/30/2023 2:32 PM CDT NPRG Troponin T, 6 hr, 5th gen CANCELED ng/L 08/30/2023 2:32 PM CDT NPRG Comment:Result canceled by t he ancillary. 6H Delta CANCELED ng/L 08/30/2023 2:32 PM CDT NPRG Comment:Result canceled by t he ancillary. 6H Delta % CANCELED % 08/30/2023 2:32 PM CDT NPRG Comment:Result canceled by t he ancillary. Blood (Blood, Venous) 08/30/2023 2:12 PM CDT 08/30/2023 2:15 PM CDT Narrative [facility] - 08/30/2023 2:32 PM CDT Specimen Information: Specimen ID: [id number] Specimen Type: Blood Specimen Collection Start Date: 08/30/2023 ??2:12 PM Specimen Received Date: 08/30/2023 ??2:15 PM Specimen ID: [id number] Specimen Type: Blood Clare Ruth D.O. LAB BLOOD TROPONIN [facility] [address] [place] [address], [place] NPRG [facility] [address] [place] [address] * (ABNORMAL) GI Pathogen Panel, PCR, Feces (08/30/2023 1:02 PM CDT) Specimen Source STOOL 10:43 AM CDT MKTO Campylobacter species Negative Negative 08/31/2023 10:43 AM CDT MKTO C. difficile toxin Negative Negative 2023 10:43 AM CDT MKTO Plesiomonas shigelloides Negative Negative 08/31/2023 10:43 AM CDT MKTO Salmonella species Negative Negative 2023 10:43 AM CDT MKTO Vibrio species Negative Negative 08/31/2023 10:43 AM CDT MKTO Vibrio cholerae Negative Negative 10:43 AM CDT MKTO Yersinia species Negative Negative 08/31/19 10:43 AM CDT MKTO Enteroaggregative E. coli (EAEC) Negative Negative 08/31/2023 10:43 AM CDT MKTO Enteropathogenic E. coli (EPEC) Negative Negative 08/31/2023 10:43 AM CDT MKTO Enterotoxigenic E. coli (ETEC) Negative Negative 08/31/2023 10:43 AM CDT MKTO Shiga toxin producing E. coli Negative Negative 08/31/2023 10:43 AM CDT MKTO Shigella/Enteroinvas dianne E. coli Negative Negative 08/31/2023 10:43 AM CDT MKTO Cryptosporidium species Negative Negative 08/31/2023 10:43 AM CDT MKTO Cyclospora cayetanensis Negative Negative 08/31/2023 10:43 AM CDT MKTO Entamoeba histolytica Negative Negative 08/31/2023 10:43 AM CDT MKTO Giardia Negative Negative 08/31/2023 10:43 AM CDT MKTO Adenovirus F40/41 Negative Negative 024 10:43 AM CDT MKTO Astrovirus Negative Negative 08/31/2023 10:43 AM CDT MKTO Norovirus GI/GII Positive(A) Negative 04/28/2 024 10:43 AM CDT MKTO Comment: The movie projectionist recently reported an increased risk of false positive results for norovirus with this test. If this positive norovirus result is not consistent with clinical presentation, the positive norovirus result should be confirmed using another method. Rotavirus Ag, F Negative Negative 10:43 AM CDT MKTO Sapovirus Negative Negative 08/31/2023 10:43 AM CDT MKTO Comment: ----ADDITIONAL INFORMATION---- This assay is performed using the FDA-cleared SolovisArray GI Panel ([employer] Semi-Urgent This is a semi-urgent result(GAN) [facility] Stool (Stool) 08/30/2023 1:0 2 PM CDT 08/31/2023 10:41 AM CDT Clare Ruth D.O. LAB MICROBIOLOGY - G ENERAL ORDERABLES [facility] [address] [place] [address], [facility] MKTO [address] [place] [address] * DX Chest AP or PA and Lateral 2 Views (08/30/2023 12:18 PM CDT) Anatomical Region Laterality Modality Chest, Thoracic RST LOS, Tho racic ARZ LOS, Thoracic FLA LOS N/A Digital Radiography Impressions 08/30/2023 12:43 PM CDT Heart size is upper limits of normal. Vague nodular opacity in the left lung base medially which could be related to overlapping rib and bronchovascular shadows but cannot exclude a focal nodular opacity. Suggest comparison with prior chest x-rays, follow-up chest x-ray. If this is new compared to prior chest x-rays or persists on follow-up chest x-ray, correlation with routine chest CT to exclude a nodule would be suggested. Calcified granulomas in the left mid and lower lung as well as calcified bilateral hilar and mediastinal lymph nodes and calcified splenic granulomas consistent with the sequela of previous granulomatous disease. No focal dense infiltrate or consolidation in either lung. Few air-fluid levels within nondilated bowel loops in the mid and upper abdomen. Chest otherwise negative without acute disease. Narrative 08/30/2023 12:43 PM CDT EXAM: DX CHEST AP OR PA AND LATERAL 2 VIEWS Procedure Note Jacoby Garay M.D. - 08/30/2023 EXAM: DX CHEST AP OR PA AND LATERAL 2 VIEWS IMPRESSION: Heart size is upper limits of normal. Vague nodular opacity in the leftlung base medially which could be related to overlapping rib andbronchovascular shadows but cannot exclude a focal nodular opacity.Suggest comparison with prior chest x-rays, follow-up chest x-ray. If this is new compared to prior chestx-rays or persists on follow-up chest x-ray, correlation with routinechest CT to exclude a nodule would be suggested. Calcified granulomas inthe left mid and lower lung as well as calcified bilateral hilar and mediastinal lymph nodes and calcifiedsplenic granulomas consistent with the sequela of previous granulomatousdisease. No focal dense infiltrate or consolidation in either lung. Fewair-fluid levels within nondilated bowel loops in the mid and upper abdomen. Chest otherwise negative without acutedisease. Clare Ruth D.O. IMG DIAGNOSTIC IMAGI NG PROCEDURES * Troponin T, Baseline, 5th gen (08/30/2023 11:38 AM CDT) Pathologist [facility] Troponin T, Baseline, 5th gen <6 <=10 ng/L 08/30/2023 12:15 PM CDT NPRG Blood (Blood, Venous) 08/30/2023 11:38 AM CDT 08/30/2023 12:01 PM CDT Clare Ruth D.O. LAB BLOOD TROPONIN [facility] [address] [place] [address], [facility] NPRG [facility] [address] [place] [address] * (ABNORMAL) CBC with Differential, Blood (08/30/2023 11:38 AM CDT) Hemoglobin 15.6(H) 11.6 - 15.0 g/dL 08/30/2023 12:07 PM CDT NPRG Hematocrit 47.8(H) 35.5 - 44.9 % 08/30/2023 12:07 PM CDT NPRG Erythrocytes 5.49(H) 3.92 - 5.13 x10(12)/L 08/30/2023 12:07 PM CDT NPRG MCV 87.1 78.2 - 97.9 fL 08/30/2023 12:07 PM CDT NPRG RBC Distrib Width 12.6 12.2 - 16.1 % 08/30/2023 12:07 PM CDT NPRG Platelet Count 391(H) 157 - 371 x10(9)/L 08/30/2023 12:07 PM CDT NPRG Leukocytes 16.3(H) 3.4 - 9.6 x10(9)/L 08/30/2023 12:07 PM CDT NPRG Neutrophils 14.74(H) 1.56 - 6.45 x10(9)/L 08/30/2023 12:07 PM CDT NPRG Lymphocytes 0.86(L) 0.95 - 3.07 x10(9)/L 08/30/2023 12:07 PM CDT NPRG Monocytes 0.65 0.26 - 0.81 x10(9)/L 08/30/2023 12:07 PM CDT NPRG Eosinophils 0.04 0.03 - 0.48 x10(9)/L 08/30/2023 12:07 PM CDT NPRG Basophils <0.04 0.01 - 0.08 x10(9)/L 08/30/2023 12:07 PM CDT NPRG Blood (Blood, Venous) 08/30/2023 11:38 AM CDT 08/30/2023 12:01 PM CDT Clare Ruth D.O. LAB BLOOD ADD-ON [facility] [address] [place] [address], [facility] NPRG [facility] [address] [place] [address] * Lipase (08/30/2023 11:38 AM CDT) Lipase, P 33 13 - 60 U/L 08/30/2023 12:20 PM CDT NPRG Blood (Blood, Venous) 08/30/2023 11:38 AM CDT 08/30/2023 12:01 PM CDT Clare Ruth D.O. LAB BLOOD ADD-ON [facility] [address] [place] [address], [facility] NPRG [facility] [address] [place] [address] * (ABNORMAL) Comprehensive Metabolic Panel (08/30/2023 11:38 AM CDT) Potassium, P 4.0 3.6 - 5.2 mmol/L 08/30/2023 12:20 PM CDT NPRG Sodium, P 141 135 - 145 mmol/L 08/30/2023 12:20 PM CDT NPRG Chloride, P 105 98 - 107 mmol/L 08/30/2023 12:20 PM CDT NPRG Bicarbonate, P 23 22 - 29 mmol/L 08/30/2023 12:20 PM CDT NPRG Anion Gap, P 13 7 - 15 08/30/2023 12:20 PM CDT NPRG BUN (Blood Urea Nitrogen), P 16 6 - 21 mg/dL 08/30/2023 12:20 PM CDT NPRG Creatinine 0.84 0.59 - 1.04 mg/dL 08/30/2023 12:20 PM CDT NPRG Estimated GFR (eGFR) 80 >=60 mL/min/BS A 08/30/2023 12:20 PM CDT NPRG Comment: Estimated GFR calculated using the 2020 CKD_EPI creatinine equation. Calcium, Total, P 9.7 8.6 - 10.0 mg/dL 08/30/2023 12:20 PM CDT NPRG Glucose, P 126 70 - 140 mg/dL 08/30/2023 12:20 PM CDT NPRG Protein, Total, P 8.0(H) 6.3 - 7.9 g/dL 08/30/2023 12:20 PM CDT NPRG Albumin, P 4.6 3.5 - 5.0 g/dL 08/30/2023 12:20 PM CDT NPRG Aspartate Aminotransferase (AST), P 22 8 - 43 U/L 08/30/2023 12:20 PM CDT NPRG Alkaline Phosphatase, P 100 35 - 104 U/L 08/30/2023 12:20 PM CDT NPRG Alanine Aminotransferase (ALT), P 26 7 - 45 U/L 08/30/2023 12:20 PM CDT NPRG Bilirubin, Total, P 0.5 0.0 - 1.2 mg/dL 08/30/2023 12:20 PM CDT NPRG Blood (Blood, Venous) 08/30/2023 11:38 AM CDT 08/30/2023 12:01 PM CDT Clare Ruth D.O. LAB BLOOD ADD-ON [facility] [address] [place] [address], [facility] NPRG [facility] [address] [place] [address] * ECG 12 Lead (08/30/2023 11:23 AM CDT) Ventricular Rate ECG/Min 81 BPM MUSE MA Interval 150 ms MUSE QRSD Interval 68 ms MUSE QT Interval 372 ms MUSE QTC Interval 432 ms MUSE P [place] 78 degrees MUSE R [place] 89 degrees MUSE T Wave [place] 72 degrees MUSE 08/30/2023 11:2 3 AM CDT 08/30/2023 11:56 AM CDT Impressions MUSE - 08/30/2023 11:56 AM CDT Normal sinus rhythm Biatrial enlargement ST and T wave abnormality, consider anterior ischemia No previous ECGs available Reviewed by LIS Arias Narrative Procedure Note Castillo Morales M.D. - 08/30/2023 IMPRESSION: Normal sinus rhythm Biatrial enlargement ST and T wave abnormality, consider anterior ischemia No previous ECGs available Reviewed by LIS Arias Clare Ruth D.O. ECG ORDERABLES MUSE NA from Last 3 Months or Most Recently Relevant to Health Maintenance Care Teams Momd Teacher Relationship Specialty Start Date End Date Elsewhere, Pcp PCP - General Family Medicine 06/11/17
--- OUTSIDE RECORDS SUMMARY | 2023-09-22 15:12 | XMS_ITS ---
Author Name Unknown Organization [facility] Address [address] [place] [address] Care Team Providers Care Cable Respooler Name Role Phone Unavailable Unavailable Unavailable Surgery Details Not on file Complications Check Surgery Details section. Procedure Estimated Blood Loss Check Surgery Details section. Procedure Findings Check Surgery Details section. Procedure Specimens Taken Check Surgery Details section.
--- OUTSIDE RECORDS SUMMARY | 2023-09-22 15:12 | XMS_ITS | Clinical Summary ---
Author Name Unknown Organization [facility] Address [address] [place] [address] Care Team Providers Care Fire And Safety Helper Name Role Phone Elsewhere, Pcp Primary Care Provider Unavailabl e Source Comments Patient records contain information from all sites at [facility]. For routine questions regarding patient records, call [phone] during business hours, M-F 8:00 AM - 5:00 PM Central Time. Record requests for emergency care only can be directed to [phone] at any time.[facility] Allergies No known active allergies Medications Medication [...] Overview: Overview: Setting: APAP 5-15 Supplied by: [facility] RDI 31 Lowest O2 Sat: 94% [place] New/nasal 01-17-17; 04/15/17 compliant Encounters Date Type Department Care Team Description 08/30/2023 11:34 AM CDT - 08/30/2023 2:46 PM CDT Emergency [place] [facility] [address] [place] [address] Clare Ruth D.O. Pain Chest (Primary Dx); Nausea And Vomiting; Diarrhea Discharge Disposition: Home or Self Care from Last 3 Months Immunizations Name Administration Dates Next Due Rho [...] Mass Index - - Plan of Treatment Health Maintenance Due Date Last Done Comments CT Colonography 1963 Cologuard 1965 Colonoscopy 1965 Colorectal Cancer Screening 1963 FIT 1965 HIV Screening 1965 Hepatitis C Screening 1965 Mammogram 1963 Hepatitis B Vaccines (1 of 3 - 19+ 3-dose series) 10/10/1982 Zoster Vaccines (1 of 2) 10/10/2013 COVID-19 Vaccine (2022-2 4 season) 2023 01/06/2021, 12/17/2020 Influenza Vaccine (#1) 2023 03/20/2020 Depression Screening (Annual PHQ-2) 05/05/2023 Cervical Cancer Screening 06/12/2026 06/12/2023 Fasting Glucose for Diabetes Screening 08/29/2026 08/30/2023, 01/30/2022 DTaP,Tdap,and Td Vaccines (3 - Td or Tdap) 06/12/2027 06/12/2017, 11/20/2009 Lipid (Cholesterol) Screening 08/07/2027 08/06/2022 Pneumococcal vaccine (0-64 years) Aged Out No longer eligible b ased on patient's age to complete this topic Procedures Procedure Name Priority Date/Time Associated Diagnosis [...] PM CDT 08/30/2023 2:15 PM CDT Narrative [facility] - 08/30/2023 2:32 PM CDT Specimen Information: Specimen ID: [id number] Specimen Type: Blood Specimen Collection Start Date: 08/30/2023 ??2:12 PM Specimen Received Date: 08/30/2023 ??2:15 PM Specimen ID: [id number] Specimen Type: Blood Clare Ruth D.O. LAB BLOOD TROPONIN [facility] [address] [place] [address], [facility] NPRG [facility] [address] [place] [address] * (ABNORMAL) GI Pathogen Panel, PCR, Feces [...] AM CDT MKTO Norovirus GI/GII Positive(A) Negative 024 10:43 AM CDT MKTO Comment: The chopped strand operator recently reported an increased risk of false positive results for norovirus with this test. If this positive norovirus result is not consistent with clinical presentation, the positive norovirus result should be confirmed using another method. Rotavirus Ag, F Negative Negative 10:43 AM CDT MKTO Sapovirus Negative Negative 08/31/2023 10:43 AM CDT MKTO Comment: ----ADDITIONAL INFORMATION---- This assay is performed using the FDA-cleared FilmArray GI Panel ([employer] Semi-Urgent This is a semi-urgent result(GAN) [facility] Stool (Stool) 08/30/2023 1:0 2 PM CDT 08/31/2023 10:41 AM CDT Clare Ruth D.O. LAB MICROBIOLOGY - G ENERAL ORDERABLES [facility] [address] [place] [address], [facility] MKTO [address] [facility] [address] [place] [address] * DX Chest AP or PA and [...] Baseline, 5th gen (08/30/2023 11:38 AM CDT) Troponin T, Baseline, 5th gen <6 <=10 ng/L 08/30/2023 12:15 PM CDT NPRG Blood (Blood, Venous) 08/30/2023 11:38 AM CDT 08/30/2023 12:01 PM CDT Clare Ruth D.O. LAB BLOOD TROPONIN [facility] [address] [place] [address], [facility] NPRG [place] [address] [address] [place] [address] * (ABNORMAL) CBC with Differential, Blood (08/30/2023 [...] CDT Clare Ruth D.O. LAB BLOOD ADD-ON [facility] [address] [place] [address], [facility] NPRG [place] [address] [address] [place] [address] * Lipase (08/30/2023 11:38 AM CDT) Lipase, P 33 13 - 60 U/L 08/30/2023 12:20 PM CDT NPRG Blood (Blood, Venous) 08/30/2023 11:38 AM CDT 08/30/2023 12:01 PM CDT Clare Ruth D.O. LAB BLOOD ADD-ON [facility] [address] [place] [address], [place] [address] [address] [place] [address] * (ABNORMAL) Comprehensive Metabolic Panel (08/30/2023 11:38 [...] AM CDT 08/30/2023 12:01 PM CDT Clare Rice D.O. LAB BLOOD ADD-ON [facility] [address] [place] [address], [place] NPRG [facility] [address] [place] [address] * ECG 12 Lead (08/30/2023 11:23 AM CDT) Ventricular Rate ECG/Min 81 BPM MUSE [place] Interval 150 ms MUSE QRSD Interval 68 ms MUSE QT Interval 372 ms MUSE QTC Interval 432 ms MUSE P [place] 78 degrees MUSE R [place] 89 degrees MUSE T Wave [place] 72 degrees MUSE 08/30/2023 11:2 3 AM [...] Recently Relevant to Health Maintenance Care Teams Fire And Safety Helper Relationship Specialty Start Date End Date Elsewhere, Pcp PCP - General Family Medicine 06/11/17
--- OUTSIDE RECORDS SUMMARY | 2023-09-22 15:12 | XMS_ITS | Encounter Summary ---
Author Name Unknown Organization [facility] Address [address] [place] [address] Care Team Providers Care Websphere Commerce Developer Name Role Phone Elsewhere, Pcp Primary Care Provider Unavailabl e Reason for Visit * Reason Comments Chest Pain Patient presents for 3/10 chest 'pressure' that started 30 minutes ago. Encounter Details Date Type Department Care Team (Late st Contact Info) Description 08/30/2023 11:34 AM CDT - 08/30/2023 2:46 PM CDT Emergency [facility] [address] [place] [phone] Clare Ruth D.O. [address] [place] [address] [phone] Pain Chest (Primary Dx); Nausea And Vomiting; Diarrhea Discharge Disposition: Home or Self Care Social History Tobacco Use Types Packs/Day Years [...] on file Sexual Orientation Not on file documented as of this encounter Last Filed Vital Signs Vital Sign Reading [...] - - Body Mass Index - - documented in this encounter Discharge Instructions * Discharge Instructions* Clare Ruth D.O. - 08/30/2023 2:35 PM CDT Drink fluids to stay hydrated, about 1 ounce every 30-45 minutes. Water, sports drink (like Gatorade), or watered down apple juice (half juice/half water) are best. Avoid acidic juices (orange/grapefruit), carbonated, or caffeinated drinks. Take the Zofran every 6 hours if needed for nausea or vomiting. Take Imodium after every episode of diarrhea, up to 8 tablets per day, to decrease the frequency ofyour diarrhea. Only take Imodium after an episode of diarrhea. Do not take Imodium if you are not having diarrhea. Follow a [place] Diet until your symptoms are improving. One example is the BRAT diet (bananas, rice,applesauce, toast). As your symptoms improve, slowly return to a normal diet. Avoid foods that will cause stomach irritation: Caffeine Coffee Chocolate Peppermint Acidic foods such as tomato sauces, orange juice, grapefruit juice Carbonated beverages such as soda Spicy foods Alcohol Tobacco products (nicotine) Follow-up with your primary care provider for the vague nodular opacity in the left lung base whichmay be due to an overlapping rib shadow but we cannot exclude a small pulmonary nodule. If symptoms worsen, return to the ER for reevaluation. * Attachments The following attachments cannot be sent through Care Everywhere. * Food Choices to Help Relieve Diarrhea Adult (Kyrgyz) * Nonspecific Chest Pain Adult Xxry-gs-Lgwm (Kyrgyz) documented in this encounter Medications at Time of Discharge Medication Sig Dispensed Refills Start Date End Date modafinil (for_PROVIGIL) 200 mg tablet Take 1-2 tablets during the day. She can split the dose, but her last dose should not be after 12 noon. 04/15/2017 ondansetron ODT (ZOFRAN-ODT) 4 mg disintegrating tablet Dissolve 1 tablet (4 mg total) in the mouth every 6 (six) hours as needed for nausea or vomiting. 10 tablet 08/30/2023 documented as of this encounter ED Notes * Clare Ruth D.O. - 08/30/2023 12:35 PM CDT [facility] EMERGENCY DEPARTMENT ENCOUNTER Patient Name: Elizabeth Bowser Birthdate 1965 Date of evaluation: 08/30/2023 Provider: Clare Ruth D.O. PCP: ELSEWHERE, PCP SUBJECTIVE CHIEF COMPLAINT/REASON FOR VISIT Chest Pain (Patient presents for 3/10 chest 'pressure' that started 30 minutes ago. ) HISTORY OF PRESENT ILLNESS Elizabeth Bowser is a 57 y.o. female who presents to the emergency department for evaluation of diarrhea, nausea/vomiting, and epigastric chest pressure. Patient with 5 episodes of watery diarrhea that started earlier this morning. Subsequently she had been developed nausea and had 2 episodes of nonbloody, nonbilious emesis. About 30 minutes prior to arrival, shortly after her second episode of emesis, she developed epigastric chest pressure and immediately came to the emergency department for evaluation. Patient's mom had been sick with a nausea, vomiting, diarrhea illness 2 days ago and when the ambulance was called to her house she was noted to have a STEMI and had a cardiac arrest and unfortunately en route to the hospital. There are also additional family members with the nausea, vomiting, diarrhea illness, but due to her mom's events 2 days ago, patient was understandably concerned and immediately came to the ED for evaluation. No history of DVT or PE. No recent travel. No back pain. No diaphoresis or shortness of breath. History provided by: Patient MEDICAL HISTORY History reviewed. No pertinent past medical history. OBJECTIVE VITAL SIGNS BP 141/89 Pulse 95 Temp 36.8 ??C (Temporal) Resp 19 Wt 88.2 kg SpO2 98% PHYSICAL EXAMINATION: Constitutional: Nursing note and vitals reviewed. Vital signs are normal. She is active and cooperative. No distress. HENT: Mouth/Throat: Oropharynx is clear and moist. Eyes: Conjunctivae are normal. Neck: Neck supple. Cardiovascular: Normal rate, regular rhythm and normal heart sounds. Capillary refill: takes less than 3 seconds Pulmonary/Chest: Effort normal and breath sounds normal. There is normal air entry. Abdominal: Soft. exhibits no distension. Bowel sounds are increased. There is no abdominal tenderness. Musculoskeletal: General: No edema. Cervical back: Neck supple. Neurological: Alert and oriented to person, place, and time. Skin: Skin is warm and dry. Psychiatric: Speech pattern is normal. Her mood appears anxious. DIAGNOSTICS LABS: Labs Reviewed CBC WITH DIFFERENTIAL, B - Abnormal Result Value Hemoglobin 15.6 (*) Hematocrit 47.8 (*) Erythrocytes 5.49 (*) MCV 87.1 RBC Distrib Width 12.6 Platelet Count 391 (*) Leukocytes 16.3 (*) Neutrophils 14.74 (*) Lymphocytes 0.86 (*) Monocytes 0.65 Eosinophils 0.04 Basophils <0.04 COMPREHENSIVE METABOLIC PANEL, S/P - Abnormal Potassium, P 4.0 Sodium, P 141 Chloride, P 105 Bicarbonate, P 23 Anion Gap, P 13 BUN (Blood Urea Nitrogen), P 16 Creatinine 0.84 Estimated GFR (eGFR) 80 Calcium, Total, P 9.7 Glucose, P 126 Protein, Total, P 8.0 (*) Albumin, P 4.6 Aspartate Aminotransferase (AST), P 22 Alkaline Phosphatase, P 100 Alanine Aminotransferase (ALT), P 26 Bilirubin, Total, P 0.5 GI PATHOGEN PANEL, PCR, F TROPONIN T, BASELINE, 5TH GEN, P Troponin T, Baseline, 5th gen <6 TROPONIN T, 2H/6H, 5TH GEN, P Troponin T, 2 hr, 5th gen <6 2H Delta 0 2H Delta Interp Not Changing LIPASE, S/P Lipase, P 33 RADIOLOGY: DX Chest AP or PA and Lateral 2 Views Final Result Heart size is upper limits of normal. [...] abdomen. Chest otherwise negative without acute disease. EKG: ECG 12 Lead Result Date: 08/30/2023 Normal sinus rhythm Biatrial enlargement ST and T wave abnormality, consider anterior ischemia No previous ECGs available Reviewed by LIS Arias EMERGENCY DEPARTMENT COURSE and DIFFERENTIAL DIAGNOSIS/MDM: Patient was given the following medications: Medications ondansetron (PF) injection 4 mg (ZOFRAN) (4 mg intravenous Given 08/30/23 1144) morphine injection 4 mg (4 mg intravenous Given 08/30/23 1145) loperamide capsule 4 mg (IMODIUM A-D) (4 mg oral Given 08/30/23 1232) MDM: IMPRESSION AND PLAN Patient presents to the emergency department for evaluation of chest pain in the setting of a diarrhea and vomiting illness. I discussed with patient that I have a low suspicion for acute coronary syndrome or dissection based on the order of events where she initially had diarrhea, followed by vomiting than chest pain. However she is understandably concerned with her mom having similar symptoms and subsequently have not a STEMI and before cardic intervention could be performed. Multiple family members with similar vomiting and diarrhea. Patient's physical exam is unremarkable. No mediastinal crunch. No subcutaneous air on the chest x-ray. Questionable shadow versus focal nodular opacity, which can be followed up with primary care. Idiscussed with patient following up with primary care for comparison CXR and monitoring. Her EKG was compared to an EKG available in Care everywhere from 2021 without significant change. Anterior T-wave inversions are present previously. No ST elevation or depression. Her troponin is undetectable x2. Labs are otherwise unremarkable. I discussed with patient that I believe she is stable for discharge home. I prescribed Zofran for the nausea and vomiting. A GI pathogen panel has been sent and we discussed using Imodium as needed for diarrhea. She will follow up with primary care regarding the chest x-ray. Return precautions were discussed. FINAL IMPRESSION: Final diagnoses: [R07.9] Pain Chest [R11.2] Nausea And Vomiting [R19.7] Diarrhea ED DISCHARGE MEDS: ED Prescriptions Medication Sig Dispense Start Date End Date Auth. Provider ondansetron ODT (ZOFRAN-ODT) 4 mg disintegrating tablet Dissolve 1 tablet (4 mg total) in the mouthevery 6 (six) hours as needed for nausea or vomiting. 10 tablet 08/30/2023 -- Clare Ruth D.O. Dariel Prince Sarah, D.O. 08/30/23 1455 documented in this encounter Plan of Treatment Not on file documented as of this encounter Procedures Procedure Name Priority Date/Time Associated Diagnosis Comments TROPONIN T, 2H/6H, 5TH GEN, P Timed 08/30/2023 2:12 PM CDT GI PATHOGEN PANEL, PCR, F Routine 08/30/2023 1:02 PM CDT DX CHEST AP OR PA AND LATERAL 2 VIEWS RAD - Semiurgent (Fast; most ED patients; some inpatients) 08/30/2023 12:18 PM CDT TROPONIN T, BASELINE, 5TH GEN, P STAT 08/30/2023 11:38 AM CDT CBC WITH DIFFERENTIAL, B STAT 08/30/2023 11:38 AM CDT LIPASE, S/P STAT 08/30/2023 11:38 AM CDT COMPREHENSIVE METABOLIC PANEL, S/P STAT 08/30/2023 11:38 AM CDT ECG STAT 08/30/2023 11:23 AM CDT documented in this encounter Results * Troponin T, 2h/6h, 5th Gen [...] PM CDT 08/30/2023 2:15 PM CDT Narrative [facility] - 08/30/2023 2:32 PM CDT Specimen Information: Specimen ID: [id number] Specimen Type: Blood Specimen Collection Start Date: 08/30/2023 ??2:12 PM Specimen Received Date: 08/30/2023 ??2:15 PM Specimen ID: [id number] Specimen Type: Blood Clare Ruth D.O. LAB BLOOD TROPONIN [facility] [address] [place] [address], [facility] NPRG [place] [address] [place] [address] * (ABNORMAL) GI Pathogen Panel, PCR, Feces [...] 024 10:43 AM CDT [place] Comment: The hyperbaric technologist recently reported an increased risk of false [...] performed using the FDA-cleared FilmArray GI Panel ([employer] Semi-Urgent This is a semi-urgent result(GAN) [facility] Stool (Stool) 08/30/2023 1:0 2 PM CDT 08/31/2023 10:41 AM CDT Clare Ruth D.O. LAB MICROBIOLOGY - G ENERAL ORDERABLES [facility] [address] [place] [address] [facility] [address] [place] [address] * DX Chest AP or PA and [...] D.O. IMG DIAGNOSTIC IMAGI NG PROCEDURES * Lipase (08/30/2023 11:38 AM CDT) Lipase, P 33 13 - 60 U/L 08/30/2023 12:20 PM CDT NPRG Blood (Blood, Venous) 08/30/2023 11:38 AM CDT 08/30/2023 12:01 PM CDT Clare Ruth D.O. LAB BLOOD ADD-ON [facility] [address] [place] [address], [facility] [address] [address] * Troponin T, Baseline, 5th gen (08/30/2023 11:38 AM CDT) [facility] Troponin T, Baseline, 5th gen <6 <=10 ng/L 08/30/2023 12:15 PM CDT NPRG Blood (Blood, Venous) 08/30/2023 11:38 AM CDT 08/30/2023 12:01 PM CDT Clare Ruth D.O. LAB BLOOD TROPONIN [facility] [address] [place] [id number], [facility] [address] [address] * (ABNORMAL) Comprehensive Metabolic Panel (08/30/2023 11:38 [...] CDT Clare Ruth D.O. LAB BLOOD ADD-ON [facility] [address] [place] [address], [facility] NPRG [facility] [address] [place] [address] * (ABNORMAL) CBC with Differential, Blood (08/30/2023 [...] CDT Clare Ruth D.O. LAB BLOOD ADD-ON [facility] [address] [place] [address], [facility] NPR[facility] [address] [place] [address] * ECG 12 Lead (08/30/2023 11:23 AM CDT) Ventricular Rate ECG/Min 81 BPM MUSE NM Interval 150 ms MUSE QRSD Interval 68 ms MUSE QT Interval 372 ms MUSE QTC Interval 432 ms MUSE P [place] 78 degrees MUSE R [place] 89 degrees MUSE T Wave [place] 72 degrees MUSE 08/30/2023 11:2 3 AM [...] Clare Ruth D.O. ECG ORDERABLES MUSE NA documented in this encounter Visit Diagnoses Diagnosis Pain Chest- Primary Nausea And Vomiting Diarrhea documented in this encounter Administered Medications Inactive Administered Medications - up to 3 most recent administrations Medication Order MAR Action Action Date Dose Rate Site loperamide capsule 4 mg (IMODIUM A-D) 4 mg, oral, Once, On 08/30/23 at 1226, For 1 dose, loperamide (IMODIUM A-D) orderable was interchanged for the loperamide (IMODIUM A-D) tablet/capsule Given 08/30/2023 12:32 PM CDT 4 mg morphine injection 4 mg 4 mg, intravenous, Once, On 08/30/23 at 1145, For 1 dose Given 08/30/2023 11:45 AM CDT 4 mg ondansetron (PF) (ZOFRAN) 4 mg/2 mL injection - ADS Override Pull Starting on 08/30/23 at 1143, For 1 dose, Created by betina raza ondansetron (PF) injection 4 mg (ZOFRAN) 4 mg, intravenous, Once, On 08/30/23 at 1143, For 1 dose Given 08/30/2023 11:44 AM CDT 4 mg documented in this encounter Active and Recently Administered Medications Times are shown in CDT. Scheduled Medication Order 08/28/2023 08/29/2023 08/30/2023 loperamide capsule 4 mg (IMODIUM A-D) (COMPLETED) 4 mg, oral, Once, On 08/30/23 at 1226, For 1 dose, loperamide (IMODIUM A-D) orderable was interchanged for the loperamide (IMODIUM A-D) tablet/capsule 1232 (Given - Provid er: Corinne Gautam R.N.) morphine injection 4 mg (COMPLETED) 4 mg, intravenous, Once, On 08/30/23 at 1145, For 1 dose 1145 (Given - Provid er: Jenny Roth R.N.) ondansetron (PF) injection 4 mg (ZOFRAN) (COMPLETED) 4 mg, intravenous, Once, On 08/30/23 at 1143, For 1 dose 1144 (Given - Provid er: Jenny Roth R.N.) documented in this encounter Care Teams Websphere Commerce Developer Relationship Specialty Start Date End Date Elsewhere, Pcp PCP - General Family Medicine 06/11/17 documented as of this encounter
--- OUTSIDE RECORDS SUMMARY | 2023-09-22 15:12 | XMS_ITS | Clinical Summary ---
Author Name Unknown Organization [facility] Address [address], [place] [address] Care Team Providers Care Tobacco Wrapping Machine Tender Name Role Phone Luci Bronson PA-C Primary Care Provider [phone] Source Comments You are receiving this document as you are listed as the primary care provider,follow-up provider, or the patient has been referred to you for consultation.This is in compliance with the Medicare and[facility] Cent[facility]aid EHR Incentive Program,which states Providers who transition their patient to another setting of careor provider of care or refers their patient to another provider of care shouldprovide summary care record for each transition of care or referral. [facility] Allergies No known active allergies Medications [...] 01/21/2017 Overview: Setting: APAP 5-15 Supplied by: [facility]: [facility] RDI 31 Lowest O2 Sat: [...] Comments Blood Pressure 144/95 04/15/2017 9:21 AM MATERIAL HANDLER Pulse 78 04/15/2017 9:21 AM MATERIAL HANDLER Temperature - - Respiratory Rate - - Oxygen Saturation 99% 04/15/2017 9:21 AM MATERIAL HANDLER Inhaled Oxygen Concentration - - Weight 89.1 kg (196 lb 6.4 oz) 04/15/2017 9:21 A M MATERIAL HANDLER Height 170.2 cm (5' 7) 04/15/2017 9:21 AM MATERIAL HANDLER Body Mass Index 30.76 04/15/2017 9:21 AM MATERIAL HANDLER Plan of Treatment Health Maintenance Due Date Last Done Comments Cervical Cancer Screening Due 1965 Colon Cancer Screening Plan Due 1965 Hep C Screening (Preventive Services) 1965 Mammogram 1965 HIV Screening (Preventive Services) 1979 Adult Preventive Visit 10/10/1981 DTaP/Tdap/Td (1 - Tdap) 10/10/1982 HepB (1) 10/10/1982 Cholesterol 10/10/2008 Zoster/Shingles (1 of 2) 10/10/2013 COVID-19 Vaccine (1 - 2022-2 4 season) 2023 Influenza (Season Ended) 2024 HepA Aged Out No longer eligi ble [...] age to complete this topic Care Teams Tobacco Wrapping Machine Tender Relationship Specialty Start Date End Date Luci Bronson, RUDDYC [address] [place] [id number] PCP - General Physician [employer] 01/17/17
--- OUTSIDE RECORDS SUMMARY | 2023-09-22 15:13 | XMS_ITS | Clinical Summary ---
Author Name Unknown Organization [facility] Address [place], [place] [address] Care Team Providers Care Smoking Pipe Mounter Name Role Phone Sherri Long DIGITAL RESEARCH ANALYST Unavailable [phone] Ricardo Lassiter RN Unavailable Rodolfo Emerson RD Unavailable [phone] Unavailable [phone] Murphy Angelo MD Primary Care Provider [phone] Allergies No known active allergies Medications Medication Sig Dispensed Refills Start Date End Date Status multivit with minerals/lutein (MULTIVITAMIN 50 PLUS ORAL) Take by mouth. Active buPROPion (WELLBUTRIN SR) 150 mg Sustained-Release tabletIndications:O besity (BMI 30-39.9),Tobacco use Take 1 Tablet (150 mg) by mouth two times daily. 180 Tablet 3 08/06/2022 Active metFORMIN (GLUCOPHAGE XR) 500 mg Extended-Release tabletIndications:O besity (BMI 30-39.9) Take 1 Tablet (500 mg) by mouth once daily with evening meal for 14 days, THEN 2 Tablets (1,000 mg) once daily with evening meal for 16 days. 46 Tablet 08/28/2023 09/27/2023 Active Active Problems Problem Noted Date Diagnosed Date Overweight 08/06/2022 Prediabetes 08/06/2022 Encounters Date Type Department Care Team Description 09/17/2023 3:00 PM CDT [facility] Weight Management - [facility] [address] [id number] Priscilla Lizama RD Medical Nutrition Therapy (Follow up) 08/28/2023 1:00 PM CDT Telemedicine [facility] [address] [place] [address] Sherri Long NP Weight (follow up - last seen 03/2022); Telehealth (No vitals taken) 08/28/2023 Travel 08/13/2023 Telephone [facility] Weight Management - [facility] [address] [place] [address] Staff, Ssut Bariatric Weight Management from Last 3 Months Social History Tobacco Use Types Packs/Day Years [...] of Communication with Friends and Fami ly Not on file 08/12/2023 Financial Resource Strain Answer Date R ecorded [...] CDT Inhaled Oxygen Concentration - - Weight 87.5 kg (192 lb 12.8 oz) 09/17/2023 3:00 PM CDT Height 167.6 cm (5' 5.98) 09/17/2023 3:00 PM CD T Body Mass Index 31.13 09/17/2023 3:00 PM CDT Plan of Treatment Upcoming Encounters Date Type Department Care Team (Late st Contact Info) Description 10/22/2023 1:30 PM CDT Office Visit [facility] [address] [place], [place] [id number] Sherri Long, DIGITAL RESEARCH ANALYST [address] [place], [place] [address] 11/13/2023 3:00 PM CDT Telemedicine [facility] Weight Management - [facility] [address] [place], [place] [phone] Priscilla Lizama, RD [address] [place] [address] Health Maintenance Due Date Last Done Comments Pneumococcal series for age 6-64 (1 of 2 - PCV) 10/10/1969 Tdap 10/10/1974 Tetanus booster 1983 Colonoscopy through age 75 10/10/2008 Mammogram for age 45-75 10/10/2008 Zoster (shingles) series for age 50+ (1 of 2) 10/10/2013 COVID-19 vaccine series ( - 2022- season) 2023 01/06/2021, 12/17/2020 Depression screening for age 12+ 01/30/2023 01/31/20 22, 01/30/2022 Influenza for age 50-64 01/04/2024 BMI (ht and wt on same day) for age 18+ 09/16/2024 09/17/2023, 08/28/2023, 08/06/2022, Additional history exists Pap test for age 21-65 06/12/2026 , 06/12/2023, 02/28/2011 Lipids for age 45-75 08/07/2027 08/06/2022 HIV for age 15-65 Completed 08/06/2022 Hepatitis C screening for ag e 18-79 Completed 08/06/2022 Procedures Procedure Name Priority Date/Time Associated Diagnosis Comments HPV THIN PREP Routine 06/12/2023 9:18 AM LEASE PURCHASE TRUCK DRIVER LC HIV-1/O/2, 4TH GENERATION Routine 08/06/2022 4:23 PM CDT Encounter for screening for HIV LC HCV ANTIBODY RFX TO QUANT PCR Routine 08/06/2022 4:23 PM CDT Need for hepatitis C screening test LC LIPID PANEL AND CHOL/HDL RATIO Routine 08/06/2022 4:23 PM CDT Lipid screening from Last 3 Months or Most Recently Relevant to Health Maintenance Results * HPV HIGH RISK (06/12/2023 9:18 AM LEASE PURCHASE TRUCK DRIVER) TYPE 16 Negative Negative 06/17/2023 1:48 PM LEASE PURCHASE TRUCK DRIVER [facility] TYPE 18 Negative Negative 06/17/2023 1:48 PM LEASE PURCHASE TRUCK DRIVER [facility] OTHER HIGH RISK TYPES Negative Negative 06/17/2023 1:48 PM LEASE PURCHASE TRUCK DRIVER [facility] Other (Cervical) 06/12/2023 9:18 AM LEASE PURCHASE TRUCK DRIVER 06/16/2023 8:10 AM LEASE PURCHASE TRUCK DRIVER Narrative [facility] - 06/17/2023 1:48 PM LEASE PURCHASE TRUCK DRIVER HPV types 16, 18, 31, 33, 35, 39, 45, 51, 52, 56, 58, 59, 66 and 68 DNA were undetectable or below the pre-set threshold. Methodology: Ruben Muna 4800 HPV Test August Dominga Marquez PA-C MICROBIOLOGY [facility] [address] [place] [address], * (ABNORMAL) LC LIPID PANEL AND CHOL/HDL RATIO (08/06/2022 4:23 PM CDT) Cholesterol, Total 165 100 - 199 mg/dL 08/09/2022 10:[address] [facility] Triglycerides 177(H) 0 - 149 mg/dL 08/09/2022 10:[address] [facility] HDL Cholesterol 59 >39 mg/dL 10:[address] [facility] VLDL Cholesterol Sesar 30 5 - 40 mg/dL 08/09/2022 10:[address] [facility] LDL Chol Calc (NIH) 76 0 - 99 mg/dL 08/09/2022 10:[address] [facility] T. Chol/HDL Ratio 2.8 0.0 - 4.4 ratio 08/09/2022 10:[address] [facility] ([facility]) Comment: ?T. Chol/HDL Ratio ?Men ??Women ?1/2 Avg.Risk ??3.4 ?3.3 ?Avg.Risk ??5.0 ?4.4 ? 2X Avg.Risk ??9.6 ?7.1 ? 3X Avg.Risk 23.4 ?? 11.0 Blood BLOOD SPECIMEN / Unknown Venipuncture / Unknown 08/06/2022 4:23 PM CDT 08/06/2022 4:26 PM CDT Narrative [facility] - 08/09/2022 10:10 AM CDT Performed at: ??[address] ??[id number] Respiratory Supervisor: Antoine Casarez MD, Phone: ??[phone] Robby Mahoney MD SEND OUTS Performing Organization Address [facility] Co de Phone Number [facility] ([facility]) [address] [place] [address], * LC HCV ANTIBODY RFX TO QUANT PCR (08/06/2022 4:23 PM CDT) HCV Ab Non Reactive Non Reactive 08/09/2022 12:08 PM CDT [facility] Blood BLOOD SPECIMEN / Unknown Venipuncture / Unknown 08/06/2022 4:23 PM CDT 08/06/2022 4:26 PM CDT Narrative [facility] ([facility]) - 08/09/2022 12:08 PM CDT Performed at: ??[address] ??[id number] Respiratory Supervisor: Antoine Casarez MD, Phone: ??[phone] Robby Mahoney MD LABORATORY Performing Organization Address [facility] Co de Phone Number [facility] ([facility]) [address] [place] [address], * LC HIV-1/O/2, 4TH GENERATION (08/06/2022 4:23 PM CDT) Pathologist [facility] HIV Scr 4th Gen Non Reactive Non Reactive 08/09/2022 12:08 PM CDT [facility] ([facility] Comment: HIV Negative HIV-1/HIV-2 antibodies and HIV-1 p24 antigen were NOT detected. There is no laboratory evidence of HIV infection. Blood BLOOD SPECIMEN / Unknown Venipuncture / Unknown 08/06/2022 4:23 PM CDT 08/06/2022 4:26 PM CDT Narrative [facility] ([facility]) - 08/09/2022 12:08 PM CDT Performed at: ??[address] ??[id number] Respiratory Supervisor: Antoine Casaerz MD, Phone: ??[phone] Robby Mahoney MD LABORATORY [facility] ([facility]) [address] [place], [place] [id number] from Last 3 Months or Most Recently Relevant to Health Maintenance Care Teams Smoking Pipe Mounter Relationship Specialty Start Date End Date Murphy Angelo MD [address] [place] [address] PCP - General Family Practice 08/22/23 Sherri Long, DIGITAL RESEARCH ANALYST [address] [place], [place] [address] Nurse Practitioner - Family 01/30/22 Ricardo Lassiter, ALBERTA [address] [place], [place] [address] Registered Nurse 01/30/[address] [place], [place] [address] Probate Lawyer 01/30/[address] [place] [address] Probate Lawyer 01/30/22
--- NOTE | 2023-09-22 15:20 | MM_ITS ---
Patient: ZBIGNIEW LOPEZ Facility:?[facility] Patient ID:?[id number] Site Patient ID:?[id number]. Site :?1965 Study:?XRay-Breast Bilateral 3D W/CAD-09/22/2023 3:49:15 PM Ordering Physician:Kamlesh August Final Report: BILATERAL SCREENING MAMMOGRAM WITH COMPUTER-AIDED DETECTION AND TOMOSYNTHESIS TECHNIQUE: CC and MLO views were obtained. These mammographic images have been obtained using full-field digital technique. These mammographic images were interpreted with the benefit of computer-aided detection. Breast Tomosynthesis was used in this interpretation. COMPARISON FILM: 09/18/22, 08/20/21, 03/01/20. FINDINGS: There are scattered areas of fibroglandular density IMPRESSION: There is no radiographic evidence for malignancy. ASSESSMENT: BI-RADS Category 1: Negative RECOMMENDATION: Routine screening mammogram in 1 year. A lay language report of this examination will be provided to the patient. Néstor Jenkins M.D. Diagnostic Radiologist [email or web address] Transcribed: 2:17 p.mSherman montes de oca/Dictated by: Néstor Jenkins MD @ 09/23/2023 1:18:00 PM Signed by:?Néstor Jenkins MD @09/23/2023 2:18:01 PM (Electronic Signature)
== END 2023-09-22 15:10 | disposition home or self-care (01) ==
LOC: MAMMO 15:10
PROVIDERS: PCP Family Medicine; Visit Provider Physician Assistant
DX: Z12.31 Encounter for screening mammogram for malignant neoplasm of breast (principal)
CPT/HCPCS: 77063; 77067

== ENCOUNTER 2024-03-29 10:27 | Outpatient (CLI) | payer BC, SELFPAY ==
--- OUTSIDE RECORDS SUMMARY | 2024-03-29 10:30 | XMS_ITS | Clinical Summary ---
Author Organization [facility] Address [address] [address] Care Team Providers Care Communications Scientist Name Role Phone Luci Bronson PA-C Primary Care Provider [phone] Source Comments You are receiving this document as you are listed as the primary care provider,follow-up provider, or the patient has been referred to you for consultation.This is in compliance with the Medicare and[place]healthcaid EHR Incentive Program,which states Providers who transition their patient to another setting of careor provider of care or refers their patient to another provider of care shouldprovide summary care record for each transition of care or referral. [facility] Allergies No known active allergies Medications Medication Sig Dispensed Refills Start Date End Date Status modafinil (PROVIGIL) 200 MG tablet Take 1-2 tablets during the day. She can split the dose, but her last dose should not be after 12 noon. 60 Tab 2 04/15/2017 Active Active Problems Problem Noted Date Diagnosed Date Obstructive sleep apnea on CPAP 01/21/2017 Overview (04/16/2017): Setting: APAP 5-15 Supplied by: [facility] PSG done: 12-22-16 [facility] AHI 19 [...] Comments Blood Pressure 144/95 04/15/2017 9:21 AM ROOM SERVICE FOOD SERVICE ATTENDANT Pulse 78 04/15/2017 9:21 AM ROOM SERVICE FOOD SERVICE ATTENDANT Temperature - - Respiratory Rate - - Oxygen Saturation 99% 04/15/2017 9:21 AM ROOM SERVICE FOOD SERVICE ATTENDANT Inhaled Oxygen Concentration - - Weight 89.1 kg (196 lb 6.4 oz) 04/15/2017 9:21 A M ROOM SERVICE FOOD SERVICE ATTENDANT Height 170.2 cm (5' 7) 04/15/2017 9:21 AM ROOM SERVICE FOOD SERVICE ATTENDANT Body Mass Index 30.76 04/15/2017 9:21 AM ROOM SERVICE FOOD SERVICE ATTENDANT Plan of Treatment Health Maintenance Due Date Last Done Comments Cervical Cancer Screening Due 1965 Colon Cancer Screening Plan Due 1965 Hep C Screening (Preventive Services) 1965 Mammogram 1965 HIV Screening (Preventive Services) 1979 Adult Preventive Visit 10/10/1981 DTaP/Tdap/Td (1 - Tdap) 10/10/1982 Cholesterol 10/10/2008 Zoster/Shingles (1 of 2) 10/10/2013 COVID-19 Vaccine (2023-2 5 season) 2024 Influenza (#1) 2024 RSV (1 - 1-dose 75+ series) 10/10/2038 HepA Aged Out No longer eligi ble based on patient's age to complete this topic HepB Aged Out No longer eligi ble based on patient's age to complete this topic Hib Aged Out No longer eligi ble based on patient's age to complete this topic IPV (Polio) Aged Out No longer eligi ble based on patient's age to complete this topic Infant RSV Aged Out No longer eligi ble based on patient's age to complete this topic MCV4 Aged Out No longer eligi ble based on patient's age to complete this topic Pneumococcal Aged Out No longer eligi ble based on patient's age to complete this topic Care Teams Communications Scientist Relationship Specialty Start Date End Date Luci Bronson PA-C [address] [place] [address] PCP - General Physician Sewer Pipe Cleaner 01/17/17
--- OUTSIDE RECORDS SUMMARY | 2024-03-29 10:30 | XMS_ITS | Referral Summary ---
Author Organization [facility] Address [address] [place] [address] Care Team Providers Care Endless Track Vehicle Supervisor Name Role Phone Elsewhere, Pcp Primary Care Provider Unavailabl e Source Comments Patient records contain information from all sites at [facility]. For routine questions regarding patient records, call [phone] during business hours, M-F 8:00 AM - 5:00 PM Central Time. Record requests for emergency care only can be directed to [phone] at any time.[facility] Allergies No known active allergies Medications modafinil (for_PROVIGIL) 200 mg tablet Take 1-2 tablets during the day. She can split the dose, but her last dose should not be after 12 noon. 7 Active ondansetron ODT (ZOFRAN-ODT) 4 mg disintegrating tablet Dissolve 1 tablet (4 mg total) in the mouth every 6 (six) hours as needed for nausea or vomiting. 10 tablet 4 Active Active Problems Problem Noted Date Diagnosed Date Apnea Sleep Obstructive 01/21/2017 Overview (06/11/2017): Overview: Setting: APAP 5-15 Supplied by: [facility] PSG done: 12-22-16 [facility] AHI 19 RDI 31 Lowest O2 Sat: 94% [place] New/nasal 01-17-17; 04/15/17 compliant Immunizations Name Administration [...] Recorded Dental: Regular Dentist Unknown 07/08/19 21 Comments No Sex and Gender Information Value Date Recorded Sex Assigned at Not on file Legal Sex Female 2:00 PM SOFTWARE TESTING SPECIALIST Gender Identity Not on file Sexual Orientation Not on file Last Filed Vital Signs Vital Sign Reading Time Taken Comments Blood Pressure 125/89 08/30/2023 2:45 PM CDT Pulse 87 08/30/2023 2:45 PM CDT Temperature 36.8 C (98.2 F) 08/30/2023 11:30 AM CDT Respiratory Rate 16 08/30/2023 2:45 PM CDT Oxygen Saturation 98% 08/30/2023 2:45 PM CDT Inhaled Oxygen Concentration - - Weight 88.2 kg (194 lb 6.4 oz) 08/30/2023 11:38 AM CDT Height - - Body Mass Index - - Plan of Treatment Not on file Procedures Procedure Name Priority Date/Time Associated Diagnosis Comments COMPREHENSIVE METABOLIC PANEL, S/P STAT 08/30/2023 11:38 AM CDT from Last 3 Months or Most Recently Relevant to Health Maintenance Results * (ABNORMAL) Comprehensive Metabolic Panel (08/30/2023 11:38 [...] CDT Clare Ruth D.O. LAB BLOOD ADD-ON Final Result [facility] [address] [place] [address], [place] NPRG [facility] [address] [place] [address] from Last 3 Months or Most Recently Relevant to Health Maintenance Insurance [facility] [place] Care Teams Endless Track Vehicle Supervisor Relationship Specialty Start Date End Date Elsewhere, Pcp PCP - General Family Medicine 06/11/17
--- OUTSIDE RECORDS SUMMARY | 2024-03-29 10:30 | XMS_ITS | Continuity of Care Document ---
Author Organization [facility] Address [address] [place] [address] Phone Care Team Providers Care Preschool Assistant Director Name Role Phone Sebastián Daley MD Unavailable [...] Provider Providers Copied on Encounter [facility], [address], [facility] [place], [id number], [place] tel:[phone] [facility] No Information 3 Edi Lowery. [facility], [address], [address], [place], [place], [id number] , [place]. tel: [phone] Office/Outpat ient Visit,Est, Mod [facility], [address], [place], [place], [id number], [place] tel:[phone] [facility] Cervicalgia 3 Juan Miranda. [facility], [address], [place], [address], [place]. tel: [phone] Referring Provider: Hayden Painter, [facility] [address] [place], [address]. tel:[phone] OFFICE/OUTPAT IENT VISIT EST Phone [facility], [address], [place], [id number], [place] tel:[phone] [facility] No Information 3 Oswaldo English. [facility], [address], [place], [place], [id number] , [place]. tel: [phone] Office/Outpat ient Visit,Est, Mod [facility], [address], [place], [id number], [place] tel:[phone] [facility] Spinal stenosis, cervical region 3 Oswaldo English. [facility], [address], [place], [id number] , [place]. tel: [phone] Office/Outpat ient Visit,Est, Mod [facility], [address], [place], [id number], [place] tel:[phone] [facility] Spinal stenosis, cervical region 0 Juan Miranda. [facility], [address], [place], [address], [place]. tel: [phone] OFFICE/OUTPAT IENT VISIT EST Phone [facility], [address], [place], [id number], [place] tel:[phone] [facility] No Information 0 Juan Miranda. [facility], [address], [place], [address], [place]. tel:[phone] Office/Outpat ient Visit,Est, Mod [facility], [address], [place], [id number], [place] tel:[phone] [facility] Cervical disc disorder at C6-C7 level with radiculopathy 9 Chacon Amador. [facility], [address], [place], [id number] , [place]. tel:[phone] Office/Outpat ient Visit,Est, Mod [facility], [address], [place], [place], [id number], [place] tel:[phone] [facility] Cervical disc disorder at C6-C7 level with radiculopathy 9 Oswaldo English. [facility], [address], [place], [id number] , [place]. tel:[phone] Office/Outpat ient Visit,Est, Mod [facility], [address], [place], [id number], [place] tel:[phone] [facility] Cervical disc disorder at C6-C7 level with radiculopathy 9 Chacon Amador. [facility], [address], [place], [id number] , [place]. tel: [phone] Office/Outpat ient Visit,Est, Mod [facility], [address], [place], [id number], [place] tel:[phone] [facility] Cervical disc disorder at C6-C7 level with radiculopathy 8 Oswaldo English. [facility], [address], [place], [id number] , [place]. tel:[phone] Office/Outpat ient Visit,Est, Mod [facility], [address], [place], [id number], [place] tel:[phone] [facility] Cervical disc disorder at C6-C7 level with radiculopathy 8 Oswaldo English. [facility], [address], [place], [id number] , [place]. tel: [phone] Office/Outpat ient Visit,Est, Mod [facility], [address], [place], [id number], [place] tel:[phone] [facility] Radiculopathy, cervical region 8 Oswaldo English. [facility], [address] [place] [address], [place], [id number] , [place]. tel: [phone] Office/Outpat ient Visit,New, Mod [facility], [address], [place], [id number], [place] tel:[phone] [facility] Doe Radiculopathy, cervical region 8 Israel Norrisn. [facility], [address] [place] [address] [address], [facility] [place], [id number] , [place]. tel: [phone] Family History Family Member Type Diagnosis Age At Onset No Information Payers Payer name Insurance type Covered alliance party ID Authormonchoa alyssa(s) [employer] Work Comp Ins [facility] [id number] [facility] [id number] Social History Type Description Quantity Date Captured [...]
--- OUTSIDE RECORDS SUMMARY | 2024-03-29 10:30 | XMS_ITS | Clinical Summary ---
Author Organization [facility] Address [address] [place] [address] Care Team Providers Care Shop Assistant Name Role Phone Elsewhere, Pcp Primary Care Provider Unavailabl e Source Comments Patient records contain information from all sites at [facility]. For routine questions regarding patient records, call [phone] during business hours, M-F 8:00 AM - 5:00 PM Central Time. Record requests for emergency care only can be directed to [phone] at any time.[facility] Allergies No known active allergies Medications modafinil [...] (06/11/2017): Overview: Setting: APAP 5-15 Supplied by: [facility] PSG done: 12-22-16 [facility] AHI 19 [...] on file Legal Sex Female 2:00 PM AQUATIC DIRECTOR Gender Identity Not on file Sexual Orientation [...] 1965 Hepatitis C Screening 1965 Mammogram 1965 Zoster Vaccines (1 of 2) 10/10/2013 Depression Screening (Annual PHQ-2) 05/05/2023 COVID-19 Vaccine (3 - 2023-2 5 season) 2024 01/06/2021, 12/17/2020 Influenza Vaccine (#1) 2024 03/20/2020 Cervical/Vaginal Cancer Screening 06/12/2026 06/12/2023 Fasting Glucose for Diabetes Screening 08/29/2026 08/30/2023, 01/30/2022 DTaP,Tdap,and Td Vaccines (3 - Td or Tdap) 06/12/2027 06/12/2017, 11/20/2009 Lipid (Cholesterol) Screening 08/07/2027 08/06/2022 Hepatitis B Vaccines Aged Out No long er eligible based on patient's age to complete this topic IPV Vaccines Aged Out No longer eligi ble based on patient's age to complete this topic Pneumococcal vaccine (0-64 years) Aged Out No [...] 11:38 AM CDT 08/30/2023 12:01 PM CDT us Clare Ruth D.O. LAB BLOOD ADD-ON Final Result [facility] [address] [place] [address], [facility] NPRG [facility] [address] [place] [address] from Last 3 Months or Most Recently Relevant to Health Maintenance Insurance [facility] [place] Care Teams Shop Assistant Relationship Specialty Start Date End Date Elsewhere, Pcp PCP - General Family Medicine 06/11/17
--- OUTSIDE RECORDS SUMMARY | 2024-03-29 10:30 | XMS_ITS ---
Author Organization [facility] Address [address] [place] [address] Care Team Providers Care Plasma Processor Name Role Phone Unavailable Unavailable Unavailable Surgery Details Not on file Complications Check Surgery Details section. Procedure Estimated Blood Loss Check Surgery Details section. Procedure Findings Check Surgery Details section. Procedure Specimens Taken Check Surgery Details section.
--- OUTSIDE RECORDS SUMMARY | 2024-03-29 10:31 | XMS_ITS | Clinical Summary ---
Author Organization [facility] Address [place], [place] [address] Care Team Providers Care Prop Setter Name Role Phone Sherri Long ENVIRONMENTAL LAW PROFESSOR Unavailable [phone] Ricardo Lassiter RN Unavailable Rodolfo Emerson RD Unavailable [phone] Unavailable [phone] Murphy Angelo MD Primary Care Provider [phone] Allergies No known active allergies Medications Medication [...] Sign Reading Time Taken Comments Blood Pressure 122/84 10/22/2023 1:22 PM CDT Pulse 64 10/22/2023 1:22 PM CDT Temperature 36.7 C (98.1 F) 07/15/2017 1:44 AM CDT Respiratory Rate 20 07/15/2017 1:44 AM CDT Oxygen Saturation 99% 08/06/2022 3:46 PM CDT Inhaled Oxygen Concentration - - Weight 88.2 kg (194 lb 8 oz) 10/22/2023 1:22 PM CDT Height 167.6 cm (5' 5.98) 10/22/2023 1:22 PM CD T Body Mass Index 31.41 10/22/2023 1:22 PM CDT Plan of Treatment Upcoming Encounters Date Type Department Care Team (Late st Contact Info) Description 05/24/2024 8:30 AM ANIMAL CAREGIVER Office Visit [facility] [address] [place] [address] Eddie Traylor MD [address] [place] [address] Health Maintenance Due Date Last Done Comments Pneumococcal series for age 6-64 (1 of 2 - PCV) 10/10/1969 Tdap 10/10/1974 Tetanus booster 1983 Colonoscopy through age 75 10/10/2008 Mammogram for age 45-75 10/10/2008 Zoster (shingles) series for age 50+ (1 of 2) 10/10/2013 Depression screening for age 12+ 01/30/2023 01/31/20, 01/30/2022 COVID-19 vaccine series ( season) 2024 01/06/2021, 12/17/2020 Influenza for age 50-64 01/04/2024 BMI (ht and wt on same day) for age 18+ 10/21/2024 10/22/2023, 09/17/2023, 08/28/2023, Additional history exists Pap test for age 21-65 06/12/2026 , 06/12/2023, 02/28/2011 Lipids for age 45-75 10/21/2028 10/22/2023, 08/07/19 HIV for age 15-65 Completed 08/06/2022 Hepatitis C screening for ag e 18-79 Completed 08/06/2022 Procedures Procedure Name Priority Date/Time Associated Diagnosis Comments LIPID PANEL W REFLEX MEASURED LDL Routine 10/22/2023 12:50 PM CDT Obesity (BMI 30-39.9) HPV HIGH RISK Routine 06/12/2023 9:18 AM ANIMAL CAREGIVER LC HIV-1/O/2, 4TH GENERATION Routine 08/06/2022 4:23 PM CDT Encounter for screening for HIV LC HCV ANTIBODY RFX TO QUANT PCR Routine 08/06/2022 4:23 PM CDT Need for hepatitis C screening test from Last 3 Months or Most Recently Relevant to Health Maintenance Results * LIPID PANEL W REFLEX MEASURED LDL (10/22/2023 12:50 PM CDT) CHOLESTEROL,TOTAL 190 100 - 199 mg/dL 10/22/2023 6:35 PM CDT [facility] [employer] Comment: Cholesterol, Total Reference Ranges Desirable <200 mg/dL Borderline 200-239 mg/dL High >=240 mg/dL TRIGLYCERIDES 113 <150 mg/dL 10/22/2023 6:35 PM CDT [facility] HDL CHOLESTEROL 65 >40 mg/dL 6:35 PM CDT [facility] NON-HDL CHOLESTEROL 125 <145 mg/dl 10/22/2023 6:35 PM CDT [facility] CHOL/HDL RATIO 2.92 <4.50 10/22/2023 6:35 PM CDT [facility] LDL CHOLESTEROL 102 <=130 mg/dL 10/22/2023 6:35 PM CDT [facility] VLDL CHOLESTEROL 23 <=30 mg/dL 10/22/2023 6:35 PM CDT [facility] PROVIDER ORDERED STATUS RANDOM 10/22/2023 6:35 PM CDT [facility] Blood BLOOD SPECIMEN / Unknown Venipuncture / Unknown 10/22/2023 12:50 PM CDT 10/22/2023 12:50 PM CDT Sherri Long NP CHEMISTRY Performing Organization Address [place] Co de Phone Number [facility] [address] [place] [address] * HPV HIGH RISK (06/12/2023 9:18 AM ANIMAL CAREGIVER) TYPE 16 Negative Negative 06/17/2023 1:48 PM ANIMAL CAREGIVER [facility] TYPE 18 Negative Negative 06/17/2023 1:48 PM ANIMAL CAREGIVER [facility] OTHER HIGH RISK TYPES Negative Negative 06/17/2023 1:48 PM ANIMAL CAREGIVER [facility] Other (Cervical) 06/12/2023 9:18 AM ANIMAL CAREGIVER 06/16/2023 8:10 AM ANIMAL CAREGIVER Narrative [facility] - 06/17/2023 1:48 PM ANIMAL CAREGIVER HPV types 16, 18, 31, 33, 35, 39, 45, 51, 52, 56, 58, 59, 66 and 68 DNA were undetectable or below the pre-set threshold. Methodology: Ruben Muna 4800 HPV Test Adeline Marquez PA-C MICROBIOLOGY Performing Organization Address [place] Co de Phone Number [facility] [address] [place] [address], * LC HCV ANTIBODY RFX TO QUANT PCR (08/06/2022 4:23 PM CDT) HCV Ab Non Reactive Non Reactive 08/09/2022 12:08 PM CDT [facility] ([facility]) Blood BLOOD SPECIMEN / Unknown Venipuncture / Unknown 08/06/2022 4:23 PM CDT 08/06/2022 4:26 PM CDT Merged with [facility]OT[facility]IC TESTING (CET) - 08/09/2022 12:08 PM CDT Performed at: [address] [id number] Human Resources Partner: Antoine Casarez MD, Phone: [phone] Robby Mahoney MD LABORATORY Performing Organization Address [facility]/ZIP Co de Phone Number [facility] TEST[facility] (CET) [address] [place] [address] * HIV-1/O/2, 4TH GENERATION (08/06/2022 4:23 PM CDT) HIV Scr 4th Gen Non Reactive Non Reactive 08/09/2022 12:08 PM CDT [facility] (CET) Comment: HIV Negative HIV-1/HIV-2 antibodies and HIV-1 p24 antigen were NOT detected. There is no laboratory evidence of HIV infection. Blood BLOOD SPECIMEN / Unknown Venipuncture / Unknown 08/06/2022 4:23 PM CDT 08/06/2022 4:26 PM CDT [facility] FOR [facility]OTERIC TEST[facility] (CET) - 08/09/2022 12:08 PM CDT Performed at: [address] [id number] Human Resources Partner: Antoine Casarez MD, Phone: [phone] Robby Mahoney MD LABORATORY [facility] TESTING (CET) [address] [place] [address] from Last 3 Months or Most Recently Relevant to Health Maintenance Care Teams Prop Setter Relationship Specialty Start Date End Date Murphy Angelo MD [address] [place] [address] PCP - General Family Practice 08/22/23 Sherri Long, ENVIRONMENTAL LAW PROFESSOR [address] [facility] [address] [place], [place] [address] Nurse Practitioner - Family 01/30/22 Ricardo Lassiter RN [address] [place], [place] [address] Registered Nurse 01/30/[address] [facility] [address] [place], [place] [id number] Internal Grinding Machine Operator 01/30/[address] [facility] [address] [place], [place] [address] Internal Grinding Machine Operator 01/30/22
== END 2024-03-29 10:28 | disposition home or self-care (01) ==
PROVIDERS: PCP Physician Assistant Medical; Visit Provider Physician Assistant Medical
DX: I10 Essential (primary) hypertension (principal); E66.9 Obesity, unspecified
CPT/HCPCS: 80048; 84443; 87086

== ENCOUNTER 2024-04-19 09:57 | Outpatient (CLI) | payer BC, SELFPAY | END 2024-04-19 09:58 | disposition home or self-care (01) | LOC: RAD 09:58 | PROVIDERS: PCP Physician Assistant Medical; Visit Provider Physician Assistant Medical | DX: I10 Essential (primary) hypertension (principal); I35.1 Nonrheumatic aortic (valve) insufficiency; I34.0 Nonrheumatic mitral (valve) insufficiency | CPT/HCPCS: 93306 ==

== ENCOUNTER 2024-04-26 09:41 | Outpatient (CLI) | payer BC, SELFPAY ==
--- OUTSIDE RECORDS SUMMARY | 2024-04-23 21:23 | XMS_ITS ---
Author Organization [facility] Address [address] [place] [address] [address] [place] [address] Care Team Providers Care Round Cutter Operator Name Role Phone Petey NEWMAN, Hayden Primary Care Provider Unavailab Earle Milan Unavailable [phone] [place] [facility] Misael SALAZAR Unavailable Unavailab Carlos Bowen Unavailable [phone] REASON FOR VISIT LOCAL C6-7 EDWARDO with catheter to C4 using a left paramedian approach Encounters Encounter Location Date Provider Diagnosis [address] [facility] [address] [facility] [address] [address] [place] [address] 03/02/2024 Carlos Duncan Radiculopathy, cervical region M54.12 Assessments Encounter Date Diagnosis (ICD Code) Assessment Notes Treatment Notes Treatment Clinical Notes Section Notes 03/02/2024 Radiculopathy, cervical region (ICD-10 - M54.12) Plan Of Treatment No Information Progress Notes * Bambi LOPEZMannyB:1965 (4 0 yo F)Acc No.[id number]:03/02/2024 Patient: Elizabeth TOWNSEND Provider: Mady Duncan M.D. :1965 A ge:58 Y S ex:Female Date:03/02/2024 Phone: Address:[address] [place], [id number] Pcp:Hayden Angelo MD * Billing Information: * Visit Code: * Procedure Codes: A4930 Gloves Sterile Per Pair. Units: 2.00. A4209 5 cc - 19 cc gauge syringe. A4215 Nixa only Sterile any size each. Units: 2.00. A4550 Theracath Epidural Tray. A4216 Sterile water/saline, 10 ml. Units: 10.00. A4248 Chlorhexidine antisept. Units: 2.00. 88210 NJX INTERLAMINAR CRV/THRC. Q9967 Omnipaque 300 mgl/mL. Units: 3.00. J3301 Kenalog 40 mg/ml. Units: 2.00. * Sign off status: Completed true * Provider: Mady Duncan M.D. Date: Generated for Sonya mcintyre/Ludwin/Juan José on: 06/24/2023 09:23 PM OILING MACHINE OPERATOR
--- OUTSIDE RECORDS SUMMARY | 2024-04-23 21:23 | XMS_ITS ---
Author Organization [facility] Address [address] [place] [address] [address] [place] [address] Care Team Providers Care Dye Room Helper Name Role Phone Hayden Angelo MD Primary Care Provider Unavailab le Earle Patrick Unavailable [phone] [place] [facility] Misael SALAZAR Unavailable Unavailab le REASON FOR VISIT change workability note Encounters Encounter Location Date Provider Diagnosis [facility] [address] [place] [address] [address] [place] [address] 03/11/2024 Earle Patrick Plan Of Treatment No Information Progress Notes * Pernell LOPEZB:1965 (4 0 yo F)Acc No.[id number]:03/11/2024 Patient: Elizabeth TOWNSEND :1965 A ge:58 Y S ex:Female Phone: Address:[address] [place] [address] * true * Date: Generated for Sonya mcintyre/Ludwin/eTransmitting on: 06/24/2023 09:23 PM CURING FINISHER
--- OUTSIDE RECORDS SUMMARY | 2024-04-23 21:23 | XMS_ITS | Patient Health Record ---
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 Role Phone Hayden Angelo MD Primary Care Provider Unavailab Earle Milan Unavailable [phone] Israel [facility] Misael SALAZAR Unavailable Unavailab Carlos Bowen Unavailable [phone] Nury Arteaga Unavailable [phone] Pascale Rodrigues Unavailable [phone] Wilson Manriquez Unavailable [phone] Kary Birmingham Unavailable [phone] Vicki Dailey Unavailable [phone] Ruth Crespo Unavailable [phone] Mick William Unavailable [phone] Yolie Wang Unavailable [phone] Ingrid Cleaning Unavailable [phone] Ying Dawn Unavailable [phone] Allergies No Known Allergies Reason For Referral Reason eval and treat pt fo r ongoing neck, left upper extremity pain and headaches. Discuss ONBs, EDWARDO. Pt already scheduled for 02/03/24 with [facility] in [place], no need to schedule. 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 Referral Priority Routine Reason please eval and yoselin t patients ongoing neck, left upper extremity pain and persisting headaches with acupuncture. Pt prefers Levi Dye L.Ac. Call patient at [phone] to schedule. Prefers [place] Diagnosis 1 Radiculopathy, cervi elvis region (M54.12) Diagnosis 2 Dorsalgia, unspecifi ed (M54.9) Referral Organization [facility] Referring Provider First Name Mick Referring Provider Last Name Stewart Referring Provider Speciality Occupation al Medicine Referred Provider [facility] Referred Provider Specialty Acupuncturis t General Notes Nida Hou 024 07:11:09 PM >Please call the patient to schedule and fax back all notes to [phone]. If you need additional records for this referral, please call [phone]. Thanks! Referral Priority Routine Reason Please eval and yoselin t patients ongoing neck, left upper extremity pain and headaches with a course of care giver with [facility] call pt to schedule at [phone]. 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 If you need additional records for this referral, please call [phone]. Thanks! Referral Priority Routine Reason WC DOL Bilateral the rapeutic occipital nerve blocks. Diagnosis 1 Other chronic pain ( G89.29) Referral Organization [place] [address] [facility] Referring Provider First Name Earle Referring Provider Last Name Darnell Referring Provider Speciality Pain Medic ine Referred Organization [facility] Referred Provider TiaGopal cardososindy Referred Address [address],[place], [place],[address], Referred Provider Specialty Pain Medicin e Referral Priority Routine Reason WC DOL C6-7 EDWARDO Diagnosis 1 Other chronic pain ( G89.29) Referral Organization [facility] Referring Provider First Name Earle Referring Provider Last Name Darnell Referring Provider Speciality Pain Medic ine Referred Organization [facility] [address] [facility] Referred Provider Brandtmorena Earle Referred Address [address],[place], [place],[address], Referred Provider Specialty Pain Medicin e Referral Priority Routine Medications Medication SIG (Take, Route, Frequency, Duration) Notes Start Date End Date Status Multivitamin Active Fish Oil Active Meloxicam 15 MG 1 tablet with food Orally Once a day for 30 days Do not take with ibuprofen and naproxen 02/03/2024 Not-Taking Wegovy 1.7 MG/0.75ML 0.75 mL Subcutaneous for 28 days Active tiZANidine HCl 4 MG 0.5-2 tablets as needed Orally Before bed for 30 days 02/03/2024 Not-Taking Social History Tobacco Use: Social History Observation Description Date Details (start date - stop date) Current Smoker NA - NA Tobacco Use/Smoking: Question Answer Notes Are you a current smoker How often do you smoke cigarettes? every day How many cigarettes a day do you smoke? 5 or les s How soon after you wake up do you smoke your fir st cigarette? after 60 minutes Are you interested in quitting? Not ready to megan t AUDIT-C (Standard) Question Answer Notes Did you have a drink containing alcohol in the p ast year? No Points 0 Interpretation Negative Problems Problem Type SNOMED Code ICD Code Onset Dates Problem Status W/U Status Risk Notes Problem Chronic pain (71731658) Other chronic pain (G89.29) Active confirmed Problem Cervical radiculopathy (33818648) Radiculopathy, cervical region (M54.12) Active confirmed Problem Cervicalgia (48345283) Cervicalgia (M54.2) Active confirmed Problem Backache (149293339) Dorsalgia, unspecified (M54.9) Active confirmed Problem Neck pain (39781889) Neck pain (M54.2) Active confirmed Problem Cervicogenic headache (610450875) Cervicogenic headache (G44.86) Active confirmed Vital Signs Blood pressure diastolic 82 mm Hg 03/11/2024 Height 67 in 03/11/2024 Blood pressure systolic 142 mm Hg 03/11/2024 Weight 174 lbs 03/11/2024 BMI 27.25 kg/m2 03/11/2024 Procedures Procedure Date Ordered Date Performed Result Body Sit e Intervention: 02/03/2024 02/20/2024 sched 03/02 Intervention: 2 02/03/202402/24 letter sent Encounters Encounter Location Date Provider Diagnosis [facility] [address] [place] [address] 08/15/2023 Mick William [facility] [address] [place] [address] [address] [place] [address] 09/18/2023 Mick William [facility] [address] [place] [address] [address] [place] [address] 02/02/2024 Earle Patrick [facility] [address] [place] [address] [address] [place] [address] 02/09/2024 Earle Patrick [facility] [address] [place] [address] [address] [place] [address] 03/01/2024 Carlos Duncan [facility] [address] [place] [address] [address] [place] [address] 03/11/2024 Earle ARAUZ [facility] [address] [place] [address] 06/25/2023 Kary ARAUZ [facility] [address] [place] [address] 06/25/2023 Mick ARAUZ [facility] [address] [place] [address] 09/09/2023 Mick ARAUZ [facility] [address] [place] [address] 09/23/2023 Mick ARAUZ [facility] [address] [place] [address] 12/01/2023 Mick William [facility] [address] [place] [address] 07/15/2023 Wilson Narveson Dorsalgia, unspecified M54.9 ; Cervicalgia M54.2 and Radiculopathy, cervical region M54.12 [facility] [address] [place] [address] 07/23/2023 Yolie Felipe Dorsalgia, unspecified M54.9 ; Cervicalgia M54.2 and Radiculopathy, cervical region M54.12 [facility] [address] [place] [address] 08/15/2023 Nury Arteaga Dorsalgia, unspecified M54.9 ; Cervicalgia M54.2 and Radiculopathy, cervical region M54.12 [facility] [address] [place] [address] 08/18/2023 Yolie Pomona Dorsalgia, unspecified M54.9 ; Cervicalgia M54.2 and Radiculopathy, cervical region M54.12 [facility] [address] [place] [address] 09/08/2023 Kary Birmingham Dorsalgia, unspecified M54.9 and Cervicalgia M54.2 [facility] [address] [place] [address] 09/19/2023 Wilson Narveson Dorsalgia, unspecified M54.9 and Cervicalgia M54.2 [facility] [address] [place] [address] 09/23/2023 Pascale Rodrigues Dorsalgia, unspecified M54.9 and Cervicalgia M54.2 [facility] [address] [place] [address] 09/30/2023 Wilson Narveson Dorsalgia, unspecified M54.9 and Cervicalgia M54.2 [facility] [address] [place] [address] 10/06/2023 Yolie Felipe Dorsalgia, unspecified M54.9 and Cervicalgia M54.2 [facility] [address] [place] [address] 10/21/2023 Vicki Dailey Dorsalgia, unspecified M54.9 and Cervicalgia M54.2 [address] [address] [facility] [address] [place] [address] 02/09/2024 Mick William Cervicalgia M54.2 ; Dorsalgia, unspecified M54.9 and Cervicogenic headache G44.86 [facility] [address] [place] [address] 08/26/2023 Mick William Cervicalgia M54.2 ; Dorsalgia, unspecified M54.9 and Radiculopathy, cervical region M54.12 [facility] [address] [place] [address] 10/21/2023 Mick William Cervicalgia M54.2 ; Dorsalgia, unspecified M54.9 and Radiculopathy, cervical region M54.12 [facility] [address] [place] [address] 01/22/2024 Mick William Radiculopathy, cervical region M54.12 ; Cervicalgia M54.2 ; Cervicogenic headache G44.86 and Dorsalgia, unspecified M54.9 [facility] [address] [place] [address] 07/11/2023 Mick William Dorsalgia, unspecified M54.9 ; Cervicalgia M54.2 and Radiculopathy, cervical region M54.12 [facility] [address] [place] [address] 03/11/2024 Mick William Cervicalgia M54.2 ; Dorsalgia, unspecified M54.9 and Cervicogenic headache G44.86 [facility] [address] [place] [address] 03/02/2024 Carlos Duncan Radiculopathy, cervical region M54.12 [facility] [address] [place] [address] 04/24/2023 Vicki zzTeachout Neck pain M54.2 ; Dorsalgia, unspecified M54.9 and Radiculopathy, cervical region M54.12 [facility] [address] [place] [address] 04/30/2023 Kary Dauner Dorsalgia, unspecified M54.9 and Radiculopathy, cervical region M54.12 [facility] [address] [place] [address] 05/09/2023 Ingrid zzBecken Dorsalgia, unspecified M54.9 and Radiculopathy, cervical region M54.12 [facility] [address] [place] [address] 05/26/2023 Urthrios Crespo Dorsalgia, unspecified M54.9 and Radiculopathy, cervical region M54.12 [facility] [address] [place] [address] 05/29/2023 Vicki zzTeachout Dorsalgia, unspecified M54.9 ; Cervicalgia M54.2 and Radiculopathy, cervical region M54.12 [facility] [address] [place] [address] 06/03/2023 Ingrid zzBecken Dorsalgia, unspecified M54.9 ; Cervicalgia M54.2 and Radiculopathy, cervical region M54.12 [facility] [address] [place] [address] 06/06/2023 Ingrid zzBecken Dorsalgia, unspecified M54.9 ; Cervicalgia M54.2 and Radiculopathy, cervical region M54.12 [facility] [address] [place] [address] 06/10/2023 Ruth Cherie Dorsalgia, unspecified M54.9 ; Cervicalgia M54.2 and Radiculopathy, cervical region M54.12 [facility] [address] [place] [address] 06/30/2023 Kary Dauner Dorsalgia, unspecified M54.9 ; Cervicalgia M54.2 and Radiculopathy, cervical region M54.12 [facility] [address] [place] [address] 07/02/2023 Nury Arteaga Dorsalgia, unspecified M54.9 ; Cervicalgia M54.2 and Radiculopathy, cervical region M54.12 [facility] [address] [place] [address] 07/09/2023 Yolie Wang Dorsalgia, unspecified M54.9 ; Cervicalgia M54.2 and Radiculopathy, cervical region M54.12 [facility] [address] [place] [address] 07/11/2023 Ying Dawn Dorsalgia, unspecified M54.9 ; Cervicalgia M54.2 and Radiculopathy, cervical region M54.12 [facility] [address] [facility] [address] [place] [address] 02/03/2024 Rano Faltas Occipital neuralgia M54.81 ; Radiculopathy, cervical region M54.12 ; Spondylosis without myelopathy or radiculopathy, cervical region M47.812 and Other chronic pain G89.29 Assessments Encounter Date Diagnosis (ICD Code) Assessment Notes Treatment Notes Treatment Clinical Notes Section Notes 04/24/2023 Dorsalgia, unspecified (ICD-10 - M54.9) 04/24/2023 [...] M54.2) 06/10/2023 Dorsalgia, unspecified (ICD-10 - M54.9) 06/30/2023 Cervicalgia (ICD-10 - M54.2) 06/30/2023 Dorsalgia, unspecified (ICD-10 - M54.9) 07/02/2023 Cervicalgia (ICD-10 - M54.2) 07/02/2023 Dorsalgia, unspecified (ICD-10 - M54.9) 07/09/2023 Cervicalgia (ICD-10 - M54.2) 07/09/2023 Dorsalgia, unspecified (ICD-10 - M54.9) 07/11/2023 Cervicalgia (ICD-10 - M54.2) 07/11/2023 Dorsalgia, unspecified (ICD-10 - M54.9) 07/15/2023 Cervicalgia (ICD-10 - M54.2) 07/15/2023 Dorsalgia, unspecified (ICD-10 - M54.9) 07/11/2023 Cervicalgia (ICD-10 - M54.2) 1. The patient has completed 12 visits of therapy. She is making excellent strength gains, objectively measured, in the Med[employer] equipment. She still has a ways to go until she reaches her resistance goals. This represents upside additional rehabilitation potential. She would like to continue with therapy, and I do recommend it. 2. The patient reports improving symptoms. She continues to have intermittent symptoms down the left arm in a classic C6 nerve root distribution. She has been associated abnormality at that level on her cervical MRI scanning. 3. We lengthy discussion with the patient regarding her work with the [employer]. I did provide her with the following work ability letter: I serve as one of this patient's treating physicians. I was able to evaluate her today. The patient/worker has conditions that would benefit from some reduction in repetitive handling of materials with the upper extremities. Also, a limit in the weight of items she is working with. We are engaged in a strength building plan of care. The patient/worker is working hard and making excellent progress. I have the following work ability recommendations: A. In order to reduce repetitive upper extremity work without significantly impacting production, I recommend the patient be given a true six-hour route. 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 B. I recommend a 30-pound lifting restriction. 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 C. I will see the patient again in approximately 4 weeks and re-evaluate her work ability. 4. Today's evaluation occupied a full 40 minutes altogether including time spent preparing to see the patient and then providing this documentation. Prior to seeing the patient I did review previous office visit notes, therapy notes, exercise data, and imaging. We discussed her work in detail, and I did provide the worker and her employer with a highly detailed work ability letter. 07/11/2023 Dorsalgia, unspecified (ICD-10 - M54.9) 1. The patient has completed 12 visits of therapy. She is making excellent strength gains, objectively measured, in the Med[employer] equipment. She still has a ways to go until she reaches her resistance goals. This represents upside additional rehabilitation potential. She would like to continue with therapy, and I do recommend it. 2. The patient reports improving symptoms. She continues to have intermittent symptoms down the left arm in a classic C6 nerve root distribution. She has been associated abnormality at that level on her cervical MRI scanning. 3. We lengthy discussion with the patient regarding her work with the [employer]. I did provide her with the following work ability letter: I serve as one of this patient's treating physicians. I was able to evaluate her today. The patient/worker has conditions that would benefit from some reduction in repetitive handling of materials with the upper extremities. Also, a limit in the weight of items she is working with. We are engaged in a strength building plan of care. The patient/worker is working hard and making excellent progress. I have the following work ability recommendations: A. In order to reduce repetitive upper extremity work without significantly impacting production, I recommend the patient be given a true six-hour route. 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 B. I recommend a 30-pound lifting restriction. 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 C. I will see the patient again in approximately 4 weeks and re-evaluate her work ability. 4. Today's evaluation occupied a full 40 minutes altogether including time spent preparing to see the patient and then providing this documentation. Prior to seeing the patient I did review previous office visit notes, therapy notes, exercise data, and imaging. We discussed her work in detail, and I did provide the worker and her employer with a highly detailed work ability letter. 07/23/2023 Cervicalgia (ICD-10 - M54.2) 07/23/2023 Dorsalgia, unspecified (ICD-10 - M54.9) 09/19/2023 Cervicalgia (ICD-10 - M54.2) 09/19/2023 Dorsalgia, unspecified (ICD-10 - M54.9) 09/23/2023 Cervicalgia (ICD-10 - M54.2) 09/23/2023 Dorsalgia, unspecified (ICD-10 - M54.9) 09/30/2023 Cervicalgia (ICD-10 - M54.2) 09/30/2023 Dorsalgia, unspecified (ICD-10 - M54.9) 09/08/2023 Cervicalgia (ICD-10 - M54.2) 09/08/2023 Dorsalgia, unspecified (ICD-10 - M54.9) 10/06/2023 Cervicalgia (ICD-10 - M54.2) 10/06/2023 Dorsalgia, unspecified (ICD-10 - M54.9) 10/21/2023 Cervicalgia (ICD-10 - M54.2) 10/21/2023 Dorsalgia, unspecified (ICD-10 - M54.9) 08/15/2023 Cervicalgia (ICD-10 - M54.2) 08/15/2023 Dorsalgia, unspecified (ICD-10 - M54.9) 08/18/2023 Cervicalgia (ICD-10 - M54.2) 08/18/2023 Dorsalgia, unspecified (ICD-10 - M54.9) 10/21/2023 Cervicalgia (ICD-10 - M54.2) 1. Elizabeth has made significant strength gains, objectively measured, in the Med[employer] equipment. She is at the low end of her resistance goals in the MedX equipment. I do recommend maximum strengthening for this particular patient. 2. 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 3. Elizabeth is working productively for the [employer]. I am recommending limiting her to a six-hour route. 4. Today's evaluation occupied a full 30 minutes altogether including time spent preparing to see the patient and then providing this documentation. Prior to seeing the patient I did review previous office visit notes, therapy notes, imaging, and workability letters. 10/21/2023 Dorsalgia, unspecified (ICD-10 - M54.9) 1. Elizabeth has made significant strength gains, objectively measured, in the MedX equipment. She is at the low end of her resistance goals in the MedX equipment. I do recommend maximum strengthening for this particular patient. 2. 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 3. Elizabeth is working productively for the [employer]. I am recommending limiting her to a six-hour route. 4. Today's evaluation occupied a full 30 minutes altogether including time spent preparing to see the patient and then providing this documentation. Prior to seeing the patient I did review previous office visit notes, therapy notes, imaging, and workability letters. 01/22/2024 Radiculopathy, cervical region (ICD-10 - M54.12) 1. The patient returns today sadly suffering increased symptoms of occipital headache, neck pain, scapulothoracic pain, and highly probable radicular symptoms extending down the left arm, most likely C7 nerve root related. The patient could potentially be suffering a mixed radicular symptom picture. 2. Elizabeth had completed a 23 visit course of treatment here at [facility] on October 21, 2023. She had made substantial progress while in therapy in several regards. While still symptomatic, symptoms were present at a much reduced level, particularly her intrusive headache symptoms. She was working productively with the [employer], with restrictions. Her restrictions have included a 25 pound lifting maximum, and a request that she only be assigned to six-hour routes. She does have a work injury dating to June 11, 2017. 3. 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 She shouldn't have been assigned that type of work. Her exacerbation of symptoms date to that event. 4. Elizabeth's most recent imaging includes a cervical spine MRI scan from October 24, 2022. This shows multilevel cervical degenerative disc changes with highly significant findings at the C3-4, C4-5, C5-6, and C6-7 levels. There is the potential for multiple sources for left upper extremity radiculopathy, possibly mixed. She also received cervical spine x-rays on January 07, 2023. These included flexion and extension views. No instability was noted. Disc degeneration was noted at multiple levels. 5. Elizabeth has consulted with Lopez Martinez M.D. and Amador Chacon PA-C at [facility] [place] in the past. We can consider referring the patient back to Dr. Martinez at some point if symptoms persist, although I recommend attempting the following care plan first. 6. Elizabeth is reporting very high levels of symptoms and is looking for pain relief options. She reports a constant occipital headache. 7. I did refer the patient to our pain management colleagues here at [facility]. She has an appointment to see Dr. Patrick on February 03, 2024. I think the patient could be an excellent candidate for epidural steroid injection, with some consideration for occipital nerve blocks as well. 8. I also referred the patient for acupuncture. We are recommending Tatyana Dye L.Ac at [facility]. 9. I also referred the patient to Merced Chappell DC at [facility] in [place]. Dr. Chappell does have available to her a distraction/decom pression table. This type of treatment could be attempted, with some caution. 10. I have removed Elizabeth from work. We will reevaluate that decision in approximately 3 weeks. 11. Today's evaluation occupied a full 40 minutes altogether including time spent preparing to see the patient and then providing this documentation. Prior to seeing the patient I did review previous office visit notes, therapy notes, exercise data, and multiple imaging studies. We had an expanded conversation with the patient out of which arose multiple referrals. I also provided the patient and her employer with a work ability letter. 01/22/2024 Cervicalgia (ICD-10 - M54.2) 1. The patient returns today sadly suffering increased symptoms of occipital headache, neck pain, scapulothoracic pain, and highly probable radicular symptoms extending down the left arm, most likely C7 nerve root related. The patient could potentially be suffering a mixed radicular symptom picture. 2. Elizabeth had completed a 23 visit course of treatment here at [facility] on October 21, 2023. She had made substantial progress while in therapy in several regards. While still symptomatic, symptoms were present at a much reduced level, particularly her intrusive headache symptoms. She was working productively with the [employer], with restrictions. Her restrictions have included a 25 pound lifting maximum, and a request that she only be assigned to six-hour routes. She does have a work injury dating to June 11, 2017. 3. 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 She shouldn't have been assigned that type of work. Her exacerbation of symptoms date to that event. 4. Elizabeth's most recent imaging includes a cervical spine MRI scan from October 24, 2022. This shows multilevel cervical degenerative disc changes with highly significant findings at the C3-4, C4-5, C5-6, and C6-7 levels. There is the potential for multiple sources for left upper extremity radiculopathy, possibly mixed. She also received cervical spine x-rays on January 07, 2023. These included flexion and extension views. No instability was noted. Disc degeneration was noted at multiple levels. 5. Elizabeth has consulted with Lopez Martinez M.D. and Amador Chacon PA-C at [facility] in the past. We can consider referring the patient back to Dr. Martinez at some point if symptoms persist, although I recommend attempting the following care plan first. 6. Elizabeth is reporting very high levels of symptoms and is looking for pain relief options. She reports a constant occipital headache. 7. I did refer the patient to our pain management colleagues here at [facility]. She has an appointment to see Dr. Patrick on February 03, 2024. I think the patient could be an excellent candidate for epidural steroid injection, with some consideration for occipital nerve blocks as well. 8. I also referred the patient for acupuncture. We are recommending Tatyana Dye L.Ac at [facility]. 9. I also referred the patient to Merced Chappell DC at [facility] in [place]. Dr. Chappell does have available to her a distraction/decom pression table. This type of treatment could be attempted, with some caution. 10. I have removed Elizabeth from work. We will reevaluate that decision in approximately 3 weeks. 11. Today's evaluation occupied a full 40 minutes altogether including time spent preparing to see the patient and then providing this documentation. Prior to seeing the patient I did review previous office visit notes, therapy notes, exercise data, and multiple imaging studies. We had an expanded conversation with the patient out of which arose multiple referrals. I also provided the patient and her employer with a work ability letter. 08/26/2023 Cervicalgia (ICD-10 - M54.2) 1. The patient has completed 17 visits of therapy. She is making excellent strength gains, objectively measured. She did have a flare of symptoms recently which she states occurred after she lifted a heavier box at work. We had recommended limiting her lifting to the 30-pound range, though she thinks the package weighed at least 40-pounds. We lowered resistance levels somewhat in the meantime. 2. She states that she is doing much better now, and we will proceed with strength building on a 1 time per week basis. There remains considerable upside rehabilitation potential in terms of strength gains available to the patient. 3. I wrote the following work ability letter for the worker and her employer: I am recommending that the patient return to work with restrictions beginning August 27, 2023. The patient/worker has conditions that would benefit from some reduction in repetitive handling of materials with the upper extremities. Also, a limit in the weight of items she is working with. We continue to be engaged in a strength building plan of care. The patient/worker is working hard and making excellent progress, objectively measured. I have the following work ability recommendations: A. In order to reduce repetitive upper extremity work without significantly impacting production, I recommend the patient be given a true six-hour route. 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 B. I recommended a 25-pound lifting restriction. 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 C. I will see the patient again in approximately 6 weeks and reevaluate her work ability. 4. Today's evaluation occupied a full 40 minutes altogether including time spent preparing to see the patient and then providing this documentation. Prior to seeing the patient I did review office visit notes, therapy notes, exercise data, and past imaging. We discussed her work at length once again. I did provide the worker and her employer with a highly detailed work ability letter. 02/03/2024 Radiculopathy, cervical region (ICD-10 - M54.12) 02/03/2024 Occipital neuralgia (ICD-10 - M54.81) 02/09/2024 Cervicalgia (ICD-10 - M54.2) 1. Elizabeth continues to report high levels of symptoms including a constant occipital headache as well as neck and scapulothoracic symptoms. She also continues to report left-sided upper extremity paresthesias which I believe probably do represent a radiculopathy. The patient's underlying symptoms were markedly aggravated by a workplace injury exacerbation event occurring on December 31, 2023. At that time Elizabeth was given a 42.5 pound parcel to handle. We had recommended a 25-30 pound limit on lifting. She was unaware of the parcel's weight when she attempted to move it. 2. Elizabeth was able to consult with Dr. Patrick, interventional pain specialist, on February 03, 2024. Reading that report I see the patient was referred for a cervical epidural steroid injection as well as occipital nerve blocks. Elizabeth tells me she has not been contacted regarding scheduling these. We sent an internal message regarding that. I also provided Elizabeth with the scheduling department's telephone information. 3. Elizabeth has been able to make contact with Dr. Merced Chappell at [facility]. She plans to continue to treat with Dr. Chappell. 4. The [employer] performance coach, Tatyana Dye, has not contacted the patient. I had provided Elizabeth with the contact information, and I suggest Elizabeth contact the doctor directly. 5. Today's evaluation occupied a full 40 minutes altogether including time spent preparing to see the patient and then providing this documentation. Prior to seeing the patient I did review previous office visit notes, therapy notes, exercise data, consultation notes, and imaging. 6. I have the following workability recommendations for this patient: A. No work. 7. I will reevaluate the patient and her work ability in approximately 4 weeks. 03/11/2024 Cervicalgia (ICD-10 - M54.2) 1. The patient returns today for reevaluation and consideration of work ability. 2. Note, the patient did enjoy some improvement in symptoms with recent epidural injection. See the HPI section of this report. 3. Today we did once again recommend work with restrictions. 4. Today's evaluation occupied a full 30 minutes altogether including time spent preparing to see the patient and then providing this documentation. Prior to seeing the patient I did review previous office visit notes, therapy notes, exercise data, imaging, procedure notes, and previous work ability letters. We did provide the worker and her employer with a new work ability letter. 5. Today I was able to evaluate this patient once again. I have the following workability recommendations: A. 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 03/02/2024 Radiculopathy, cervical region (ICD-10 - M54.12) 03/11/2024 Dorsalgia, unspecified (ICD-10 - M54.9) 1. The patient returns today for reevaluation and consideration of work ability. 2. Note, the patient did enjoy some improvement in symptoms with recent epidural injection. See the HPI section of this report. 3. Today we did once again recommend work with restrictions. 4. Today's evaluation occupied a full 30 minutes altogether including time spent preparing to see the patient and then providing this documentation. Prior to seeing the patient I did review previous office visit notes, therapy notes, exercise data, imaging, procedure notes, and previous work ability letters. We did provide the worker and her employer with a new work ability letter. 5. Today I was able to evaluate this patient once again. I have the following workability recommendations: A. 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 02/03/2024 Spondylosis without myelopathy or radiculopathy, cervical region (ICD-10 - M47.812) 02/09/2024 Dorsalgia, unspecified (ICD-10 - M54.9) 1. Elizabeth continues to report high levels of symptoms including a constant occipital headache as well as neck and scapulothoracic symptoms. She also continues to report left-sided upper extremity paresthesias which I believe probably do represent a radiculopathy. The patient's underlying symptoms were markedly aggravated by a workplace injury exacerbation event occurring on December 31, 2023. At that time Elizabeth was given a 42.5 pound parcel to handle. We had recommended a 25-30 pound limit on lifting. She was unaware of the parcel's weight when she attempted to move it. 2. Elizabeth was able to consult with Dr. Patrick, interventional pain specialist, on February 03, 2024. Reading that report I see the patient was referred for a cervical epidural steroid injection as well as occipital nerve blocks. Elizabeth tells me she has not been contacted regarding scheduling these. We sent an internal message regarding that. I also provided Elizabeth with the scheduling department's telephone information. 3. Elizabeth has been able to make contact with Dr. Merced Chappell at [facility]. She plans to continue to treat with Dr. Chappell. 4. The [employer] performance coach, Tatyana Dye, has not contacted the patient. I had provided Elizabeth with the contact information, and I suggest Elizabeth contact the doctor directly. 5. Today's evaluation occupied a full 40 minutes altogether including time spent preparing to see the patient and then providing this documentation. Prior to seeing the patient I did review previous office visit notes, therapy notes, exercise data, consultation notes, and imaging. 6. I have the following workability recommendations for this patient: A. No work. 7. I will reevaluate the patient and her work ability in approximately 4 weeks. 08/26/2023 Dorsalgia, unspecified (ICD-10 - M54.9) 1. The patient has completed 17 visits of therapy. She is making excellent strength gains, objectively measured. She did have a flare of symptoms recently which she states occurred after she lifted a heavier box at work. We had recommended limiting her lifting to the 30-pound range, though she thinks the package weighed at least 40-pounds. We lowered resistance levels somewhat in the meantime. 2. She states that she is doing much better now, and we will proceed with strength building on a 1 time per week basis. There remains considerable upside rehabilitation potential in terms of strength gains available to the patient. 3. I wrote the following work ability letter for the worker and her employer: I am recommending that the patient return to work with restrictions beginning August 27, 2023. The patient/worker has conditions that would benefit from some reduction in repetitive handling of materials with the upper extremities. Also, a limit in the weight of items she is working with. We continue to be engaged in a strength building plan of care. The patient/worker is working hard and making excellent progress, objectively measured. I have the following work ability recommendations: A. In order to reduce repetitive upper extremity work without significantly impacting production, I recommend the patient be given a true six-hour route. 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 B. I recommended a 25-pound lifting restriction. 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 C. I will see the patient again in approximately 6 weeks and reevaluate her work ability. 4. Today's evaluation occupied a full 40 minutes altogether including time spent preparing to see the patient and then providing this documentation. Prior to seeing the patient I did review office visit notes, therapy notes, exercise data, and past imaging. We discussed her work at length once again. I did provide the worker and her employer with a highly detailed work ability letter. 01/22/2024 Cervicogenic headache (ICD-10 - G44.86) 1. The patient returns today sadly suffering increased symptoms of occipital headache, neck pain, scapulothoracic pain, and highly probable radicular symptoms extending down the left arm, most likely C7 nerve root related. The patient could potentially be suffering a mixed radicular symptom picture. 2. Elizabeth had completed a 23 visit course of treatment here at [facility] on October 21, 2023. She had made substantial progress while in therapy in several regards. While still symptomatic, symptoms were present at a much reduced level, particularly her intrusive headache symptoms. She was working productively with the [employer], with restrictions. Her restrictions have included a 25 pound lifting maximum, and a request that she only be assigned to six-hour routes. She does have a work injury dating to June 11, 2017. 3. 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 She shouldn't have been assigned that type of work. Her exacerbation of symptoms date to that event. 4. Elizabeth's most recent imaging includes a cervical spine MRI scan from October 24, 2022. This shows multilevel cervical degenerative disc changes with highly significant findings at the C3-4, C4-5, C5-6, and C6-7 levels. There is the potential for multiple sources for left upper extremity radiculopathy, possibly mixed. She also received cervical spine x-rays on January 07, 2023. These included flexion and extension views. No instability was noted. Disc degeneration was noted at multiple levels. 5. Elizabeth has consulted with Lopez Martinez M.D. and Amador Chacon PA-C at [facility] in the past. We can consider referring the patient back to Dr. Martinez at some point if symptoms persist, although I recommend attempting the following care plan first. 6. Elizabeth is reporting very high levels of symptoms and is looking for pain relief options. She reports a constant occipital headache. 7. I did refer the patient to our pain management colleagues here at [facility]. She has an appointment to see Dr. Patrick on February 03, 2024. I think the patient could be an excellent candidate for epidural steroid injection, with some consideration for occipital nerve blocks as well. 8. I also referred the patient for acupuncture. We are recommending Tatyana Dye L.Ac at [facility]. 9. I also referred the patient to Merced Chappell DC at [facility] in [place]. Dr. Chappell does have available to her a distraction/decom pression table. This type of treatment could be attempted, with some caution. 10. I have removed Elizabeth from work. We will reevaluate that decision in approximately 3 weeks. 11. Today's evaluation occupied a full 40 minutes altogether including time spent preparing to see the patient and then providing this documentation. Prior to seeing the patient I did review previous office visit notes, therapy notes, exercise data, and multiple imaging studies. We had an expanded conversation with the patient out of which arose multiple referrals. I also provided the patient and her employer with a work ability letter. 08/18/2023 Radiculopathy, cervical region (ICD-10 - M54.12) 10/21/2023 Radiculopathy, cervical region (ICD-10 - M54.12) 1. Elizabeth has made significant strength gains, objectively measured, in the [employer] equipment. She is at the low end of her resistance goals in the [employer] equipment. I do recommend maximum strengthening for this particular patient. 2. 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 3. Elizabeth is working productively for the [employer]. I am recommending limiting her to a six-hour route. 4. Today's evaluation occupied a full 30 minutes altogether including time spent preparing to see the patient and then providing this documentation. Prior to seeing the patient I did review previous office visit notes, therapy notes, imaging, and workability letters. 08/15/2023 Radiculopathy, cervical region (ICD-10 - M54.12) 07/23/2023 Radiculopathy, cervical region (ICD-10 - M54.12) 07/11/2023 Radiculopathy, cervical region (ICD-10 - M54.12) 1. The patient has completed 12 visits of therapy. She is making excellent strength gains, objectively measured, in the [employer] equipment. She still has a ways to go until she reaches her resistance goals. This represents upside additional rehabilitation potential. She would like to continue with therapy, and I do recommend it. 2. The patient reports improving symptoms. She continues to have intermittent symptoms down the left arm in a classic C6 nerve root distribution. She has been associated abnormality at that level on her cervical MRI scanning. 3. We lengthy discussion with the patient regarding her work with the [employer]. I did provide her with the following work ability letter: I serve as one of this patient's treating physicians. I was able to evaluate her today. The patient/worker has conditions that would benefit from some reduction in repetitive handling of materials with the upper extremities. Also, a limit in the weight of items she is working with. We are engaged in a strength building plan of care. The patient/worker is working hard and making excellent progress. I have the following work ability recommendations: A. In order to reduce repetitive upper extremity work without significantly impacting production, I recommend the patient be given a true six-hour route. 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 B. I recommend a 30-pound lifting restriction. 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 C. I will see the patient again in approximately 4 weeks and re-evaluate her work ability. 4. Today's evaluation occupied a full 40 minutes altogether including time spent preparing to see the patient and then providing this documentation. Prior to seeing the patient I did review previous office visit notes, therapy notes, exercise data, and imaging. We discussed her work in detail, and I did provide the worker and her employer with a highly detailed work ability letter. 07/15/2023 Radiculopathy, cervical region (ICD-10 - M54.12) 07/11/2023 Radiculopathy, cervical region (ICD-10 - M54.12) 07/09/2023 Radiculopathy, cervical region (ICD-10 - M54.12) 07/02/2023 Radiculopathy, cervical region (ICD-10 - M54.12) 06/30/2023 Radiculopathy, cervical region (ICD-10 - M54.12) 06/10/2023 Radiculopathy, cervical region (ICD-10 - M54.12) 06/06/2023 Radiculopathy, cervical region (ICD-10 - M54.12) 06/03/2023 Radiculopathy, cervical region (ICD-10 - M54.12) 05/29/2023 Radiculopathy, cervical region (ICD-10 - M54.12) 04/24/2023 Radiculopathy, cervical region (ICD-10 - M54.12) 08/26/2023 Radiculopathy, cervical region (ICD-10 - M54.12) 1. The patient has completed 17 visits of therapy. She is making excellent strength gains, objectively measured. She did have a flare of symptoms recently which she states occurred after she lifted a heavier box at work. We had recommended limiting her lifting to the 30-pound range, though she thinks the package weighed at least 40-pounds. We lowered resistance levels somewhat in the meantime. 2. She states that she is doing much better now, and we will proceed with strength building on a 1 time per week basis. There remains considerable upside rehabilitation potential in terms of strength gains available to the patient. 3. I wrote the following work ability letter for the worker and her employer: I am recommending that the patient return to work with restrictions beginning August 27, 2023. The patient/worker has conditions that would benefit from some reduction in repetitive handling of materials with the upper extremities. Also, a limit in the weight of items she is working with. We continue to be engaged in a strength building plan of care. The patient/worker is working hard and making excellent progress, objectively measured. I have the following work ability recommendations: A. In order to reduce repetitive upper extremity work without significantly impacting production, I recommend the patient be given a true six-hour route. 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 B. I recommended a 25-pound lifting restriction. 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 C. I will see the patient again in approximately 6 weeks and reevaluate her work ability. 4. Today's evaluation occupied a full 40 minutes altogether including time spent preparing to see the patient and then providing this documentation. Prior to seeing the patient I did review office visit notes, therapy notes, exercise data, and past imaging. We discussed her work at length once again. I did provide the worker and her employer with a highly detailed work ability letter. 01/22/2024 Dorsalgia, unspecified (ICD-10 - M54.9) 1. The patient returns today sadly suffering increased symptoms of occipital headache, neck pain, scapulothoracic pain, and highly probable radicular symptoms extending down the left arm, most likely C7 nerve root related. The patient could potentially be suffering a mixed radicular symptom picture. 2. Elizabeth had completed a 23 visit course of treatment here at [facility] on October 21, 2023. She had made substantial progress while in therapy in several regards. While still symptomatic, symptoms were present at a much reduced level, particularly her intrusive headache symptoms. She was working productively with the [employer], with restrictions. Her restrictions have included a 25 pound lifting maximum, and a request that she only be assigned to six-hour routes. She does have a work injury dating to June 11, 2017. 3. 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 She shouldn't have been assigned that type of work. Her exacerbation of symptoms date to that event. 4. Elizabeth's most recent imaging includes a cervical spine MRI scan from October 24, 2022. This shows multilevel cervical degenerative disc changes with highly significant findings at the C3-4, C4-5, C5-6, and C6-7 levels. There is the potential for multiple sources for left upper extremity radiculopathy, possibly mixed. She also received cervical spine x-rays on January 07, 2023. These included flexion and extension views. No instability was noted. Disc degeneration was noted at multiple levels. 5. Elizabeth has consulted with Lopez Martinez M.D. and Amador Chacon PA-C at [facility] [place] in the past. We can consider referring the patient back to Dr. Martinez at some point if symptoms persist, although I recommend attempting the following care plan first. 6. Elizabeth is reporting very high levels of symptoms and is looking for pain relief options. She reports a constant occipital headache. 7. I did refer the patient to our pain management colleagues here at [facility]. She has an appointment to see Dr. Patrick on February 03, 2024. I think the patient could be an excellent candidate for epidural steroid injection, with some consideration for occipital nerve blocks as well. 8. I also referred the patient for acupuncture. We are recommending Tatyana Dye L.Ac at [facility]. 9. I also referred the patient to Merced Chappell DC at [facility] in [place]. Dr. Chappell does have available to her a distraction/decom pression table. This type of treatment could be attempted, with some caution. 10. I have removed Elizabeth from work. We will reevaluate that decision in approximately 3 weeks. 11. Today's evaluation occupied a full 40 minutes altogether including time spent preparing to see the patient and then providing this documentation. Prior to seeing the patient I did review previous office visit notes, therapy notes, exercise data, and multiple imaging studies. We had an expanded conversation with the patient out of which arose multiple referrals. I also provided the patient and her employer with a work ability letter. 02/03/2024 Other chronic pain (ICD-10 - G89.29) Elizabeth presents to the clinic for an evaluation regarding her chronic headaches, neck pain, and left upper extremity pain. I have reviewed her symptoms and current medications. Elizabeth completed a cervical MRI on 10/24/2022. I have reviewed this imaging with her today using spinal models and diagrams. Based upon this imaging, my physical examination, and her clinical presentation, I have recommended that Elizabeth proceed with a C6-7 EDWARDO and bilateral occipital nerve blocks. I discussed these procedures with the patient, outlining the potential risks and benefits in detail and answering all questions to patient's satisfaction. Following this discussion, Elizabeth expressed interest in proceeding and I have placed orders for the aforementioned procedure accordingly. I will consider a cervical facet joint workup if her pain remains bothersome following the procedures recommended today. Elizabeth will continue to follow-up with Dr. William for management of work restrictions. Regarding medications, I have checked the [facility] database and I did not find any inconsistencies. I have started Elizabeth on meloxicam 15mg qd and tizanidine 4mg #0.5-2 qhs for improved pain management. This treatment plan was reviewed with the patient, and she was agreeable. She will return in three month for further evaluation or sooner if needed. I will continue to monitor her progress, adjusting her treatment plan as necessary. Plan: 1. Review cervical MRI 2. Order C6-7 EDWARDO 3. Order therapeutic bilateral occipital nerve block 4. Consider facet joint workup 5. Continue F/u with Dr. William 6. Start meloxicam 15mg qd 7. Start tizanidine 4mg #0.5-2 qhs 8. Follow-up in three months Discharge instructions reviewed verbally. Discussed the risks/benefits of prescribed medication. The patient was instructed to return to the office as scheduled and call with any questions, problems or concerns. Cervical MRI 10/24/2022Impre ssion:1. Degenerative cord contact and mild central stenosis at C4-5 and C5-6, mild centralcanal narrowing without cord contact at C6-7. No high-grade central stenosis.2. Left C3-4 foraminal disc protrusion and osteophyte cause moderate left [id number].3 . Chronic foraminal stenosis is moderate on the right at C4-5/C3-4, severeright/mod erate left at C5-6, and severe right/moderate to severe left at C6-7.4. Intrinsically normal cord and no fractures or mass lesions.5. Comparison to 11/09/2019 shows no significant interval changes. 02/09/2024 Cervicogenic headache (ICD-10 - G44.86) 1. Elizabeth continues to report high levels of symptoms including a constant occipital headache as well as neck and scapulothoracic symptoms. She also continues to report left-sided upper extremity paresthesias which I believe probably do represent a radiculopathy. The patient's underlying symptoms were markedly aggravated by a workplace injury exacerbation event occurring on December 31, 2023. At that time Elizabeth was given a 42.5 pound parcel to handle. We had recommended a 25-30 pound limit on lifting. She was unaware of the parcel's weight when she attempted to move it. 2. Elizabeth was able to consult with Dr. Patrick, interventional pain specialist, on February 03, 2024. Reading that report I see the patient was referred for a cervical epidural steroid injection as well as occipital nerve blocks. Elizabeth tells me she has not been contacted regarding scheduling these. We sent an internal message regarding that. I also provided Elizabeth with the scheduling department's telephone information. 3. Elizabeth has been able to make contact with Dr. Merced Chapepll at [facility]. She plans to continue to treat with Dr. Chappell. 4. The [place] retail performance coach, Tatyana Dye, has not contacted the patient. I had provided Elizabeth with the contact information, and I suggest Elizabeth contact the doctor directly. 5. Today's evaluation occupied a full 40 minutes altogether including time spent preparing to see the patient and then providing this documentation. Prior to seeing the patient I did review previous office visit notes, therapy notes, exercise data, consultation notes, and imaging. 6. I have the following workability recommendations for this patient: A. No work. 7. I will reevaluate the patient and her work ability in approximately 4 weeks. 03/11/2024 Cervicogenic headache (ICD-10 - G44.86) 1. The patient returns today for reevaluation and consideration of work ability. 2. Note, the patient did enjoy some improvement in symptoms with recent epidural injection. See the HPI section of this report. 3. Today we did once again recommend work with restrictions. 4. Today's evaluation occupied a full 30 minutes altogether including time spent preparing to see the patient and then providing this documentation. Prior to seeing the patient I did review previous office visit notes, therapy notes, exercise data, imaging, procedure notes, and previous work ability letters. We did provide the worker and her employer with a new work ability letter. 5. Today I was able to evaluate this patient once again. I have the following workability recommendations: A. 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 10/21/2023 Other I, Aly Gregory , am serving as a scribe to [...] performed and the decisions made by me. 1. Elizabeth has made significant strength gains, objectively measured, in the [employer] equipment. She is at the low end of her resistance goals in the [employer] equipment. I do recommend maximum strengthening for this particular patient. 2. 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 3. Elizabeth is working productively for the [email or web address]. I am recommending limiting her to a six-hour route. 4. Today's evaluation occupied a full 30 minutes altogether including time spent preparing to see the patient and then providing this documentation. Prior to seeing the patient I did review previous office visit notes, therapy notes, imaging, and workability letters. 01/22/2024 Other I, Román Kaiser , am serving as a scribe to [...] performed and the decisions made by me. 1. The patient returns today sadly suffering increased symptoms of occipital headache, neck pain, scapulothoracic pain, and highly probable radicular symptoms extending down the left arm, most likely C7 nerve root related. The patient could potentially be suffering a mixed radicular symptom picture. 2. Elizabeth had completed a 23 visit course of treatment here at [facility] on October 21, 2023. She had made substantial progress while in therapy in several regards. While still symptomatic, symptoms were present at a much reduced level, particularly her intrusive headache symptoms. She was working productively with the [employer], with restrictions. Her restrictions have included a 25 pound lifting maximum, and a request that she only be assigned to six-hour routes. She does have a work injury dating to June 11, 2017. 3. 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 She shouldn't have been assigned that type of work. Her exacerbation of symptoms date to that event. 4. Elizabeth's most recent imaging includes a cervical spine MRI scan from October 24, 2022. This shows multilevel cervical degenerative disc changes with highly significant findings at the C3-4, C4-5, C5-6, and C6-7 levels. There is the potential for multiple sources for left upper extremity radiculopathy, possibly mixed. She also received cervical spine x-rays on January 07, 2023. These included flexion and extension views. No instability was noted. Disc degeneration was noted at multiple levels. 5. Elizabeth has consulted with Lopez Martinez M.D. and Amador Chacon PA-C at [facility] in the past. We can consider referring the patient back to Dr. Martinez at some point if symptoms persist, although I recommend attempting the following care plan first. 6. Elizabeth is reporting very high levels of symptoms and is looking for pain relief options. She reports a constant occipital headache. 7. I did refer the patient to our pain management colleagues here at [facility]. She has an appointment to see Dr. Patrick on February 03, 2024. I think the patient could be an excellent candidate for epidural steroid injection, with some consideration for occipital nerve blocks as well. 8. I also referred the patient for acupuncture. We are recommending Tatyana Dye L.Ac at [facility]. 9. I also referred the patient to Merced Chappell DC at [facility] in [place]. Dr. Chappell does have available to her a distraction/decom pression table. This type of treatment could be attempted, with some caution. 10. I have removed Elizabeth from work. We will reevaluate that decision in approximately 3 weeks. 11. Today's evaluation occupied a full 40 minutes altogether including time spent preparing to see the patient and then providing this documentation. Prior to seeing the patient I did review previous office visit notes, therapy notes, exercise data, and multiple imaging studies. We had an expanded conversation with the patient out of which arose multiple referrals. I also provided the patient and her employer with a work ability letter. 07/11/2023 Other I, Dy Nathaniel Hameed, am serving as a scribe to [...] performed and the decisions made by me. 1. The patient has completed 12 visits of therapy. She is making excellent strength gains, objectively measured, in the [employer] equipment. She still has a ways to go until she reaches her resistance goals. This represents upside additional rehabilitation potential. She would like to continue with therapy, and I do recommend it. 2. The patient reports improving symptoms. She continues to have intermittent symptoms down the left arm in a classic C6 nerve root distribution. She has been associated abnormality at that level on her cervical MRI scanning. 3. We lengthy discussion with the patient regarding her work with the [employer]. I did provide her with the following work ability letter: I serve as one of this patient's treating physicians. I was able to evaluate her today. The patient/worker has conditions that would benefit from some reduction in repetitive handling of materials with the upper extremities. Also, a limit in the weight of items she is working with. We are engaged in a strength building plan of care. The patient/worker is working hard and making excellent progress. I have the following work ability recommendations: A. In order to reduce repetitive upper extremity work without significantly impacting production, I recommend the patient be given a true six-hour route. 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 B. I recommend a 30-pound lifting restriction. 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 C. I will see the patient again in approximately 4 weeks and re-evaluate her work ability. 4. Today's evaluation occupied a full 40 minutes altogether including time spent preparing to see the patient and then providing this documentation. Prior to seeing the patient I did review previous office visit notes, therapy notes, exercise data, and imaging. We discussed her work in detail, and I did provide the worker and her employer with a highly detailed work ability letter. 08/26/2023 Other I, Aly Gregory , am serving as a scribe to [...] performed and the decisions made by me. 1. The patient has completed 17 visits of therapy. She is making excellent strength gains, objectively measured. She did have a flare of symptoms recently which she states occurred after she lifted a heavier box at work. We had recommended limiting her lifting to the 30-pound range, though she thinks the package weighed at least 40-pounds. We lowered resistance levels somewhat in the meantime. 2. She states that she is doing much better now, and we will proceed with strength building on a 1 time per week basis. There remains considerable upside rehabilitation potential in terms of strength gains available to the patient. 3. I wrote the following work ability letter for the worker and her employer: I am recommending that the patient return to work with restrictions beginning August 27, 2023. The patient/worker has conditions that would benefit from some reduction in repetitive handling of materials with the upper extremities. Also, a limit in the weight of items she is working with. We continue to be engaged in a strength building plan of care. The patient/worker is working hard and making excellent progress, objectively measured. I have the following work ability recommendations: A. In order to reduce repetitive upper extremity work without significantly impacting production, I recommend the patient be given a true six-hour route. 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 B. I recommended a 25-pound lifting restriction. 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 C. I will see the patient again in approximately 6 weeks and reevaluate her work ability. 4. Today's evaluation occupied a full 40 minutes altogether including time spent preparing to see the patient and then providing this documentation. Prior to seeing the patient I did review office visit notes, therapy notes, exercise data, and past imaging. We discussed her work at length once again. I did provide the worker and her employer with a highly detailed work ability letter. 03/11/2024 Other I, Tejas Oliver, am serving as a scribe to document [...] performed and the decisions made by me. 1. The patient returns today for reevaluation and consideration of work ability. 2. Note, the patient did enjoy some improvement in symptoms with recent epidural injection. See the HPI section of this report. 3. Today we did once again recommend work with restrictions. 4. Today's evaluation occupied a full 30 minutes altogether including time spent preparing to see the patient and then providing this documentation. Prior to seeing the patient I did review previous office visit notes, therapy notes, exercise data, imaging, procedure notes, and previous work ability letters. We did provide the worker and her employer with a new work ability letter. 5. Today I was able to evaluate this patient once again. I have the following workability recommendations: A. 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 02/03/2024 Other I, Jose Alberto Clemens, am serving as a scribe to document services personally performed by Earle Patrick MD, based upon my observations and the provider's statements to me. All documentation has been reviewed by the aforementioned doctor prior to being entered into the official medical record. I, Earle Patrick MD attest that the above named individual is acting in scribe capacity, has observed my performance of the services and has documented them in accordance with my direction. The documentation recorded by the scribe accurately reflects the service I personally performed and the decisions made by me. We would like to thank Dr. William for referring Elizabeth to us today. It has been a pleasure to participate in her care. Please feel free to contact me if you have any questions. 02/09/2024 Other I, Lisa Charles, am serving as a scribe to document [...] performed and the decisions made by me. 1. Elizabeth continues to report high levels of symptoms including a constant occipital headache as well as neck and scapulothoracic symptoms. She also continues to report left-sided upper extremity paresthesias which I believe probably do represent a radiculopathy. The patient's underlying symptoms were markedly aggravated by a workplace injury exacerbation event occurring on December 31, 2023. At that time Elizabeth was given a 42.5 pound parcel to handle. We had recommended a 25-30 pound limit on lifting. She was unaware of the parcel's weight when she attempted to move it. 2. Elizabeth was able to consult with Dr. Patrick, interventional pain specialist, on February 03, 2024. Reading that report I see the patient was referred for a cervical epidural steroid injection as well as occipital nerve blocks. Elizabeth tells me she has not been contacted regarding scheduling these. We sent an internal message regarding that. I also provided Elizabeth with the scheduling department's telephone information. 3. Elizabeth has been able to make contact with Dr. Merced Chappell at [facility]. She plans to continue to treat with Dr. Chappell. 4. The [place] retail performance coach, Tatyana Dye, has not contacted the patient. I had provided Elizabeth with the contact information, and I suggest Elizabeth contact the doctor directly. 5. Today's evaluation occupied a full 40 minutes altogether including time spent preparing to see the patient and then providing this documentation. Prior to seeing the patient I did review previous office visit notes, therapy notes, exercise data, consultation notes, and imaging. 6. I have the following workability recommendations for this patient: A. No work. 7. I will reevaluate the patient and her work ability in approximately 4 weeks. Plan Of Treatment Pending Test Test Name Order Date Intervention: 2 02/03/2024 Insurance Providers Payer Name Payer Address Payer Phone Subscriber Number Group Number Insured Name Patient Relationship to Insured Coverage Start Date Coverage End Date [employer] of [employer] / [facility] [address] [place] [phone] [id number] [employer], Employee Medical (General) History Medical History History ICD Code Migraines Sleep Apnea Headaches Surgical History Surgery Date(Month/Year) 2 C-Sections Hospitalization History Reason Date(Month/Year) Surgical
--- OUTSIDE RECORDS SUMMARY | 2024-04-23 21:23 | XMS_ITS ---
Author Organization [facility] Address [address] [place] [address] Care Team Providers Care Head Golf Professional Name Role Phone Hayden Angelo MD Primary Care Provider Unavailab Earle Milan Unavailable [phone] [place] [facility] Misael SALAZAR Unavailable Unavailab Mick Cummings Unavailable [phone] Allergies No Known Allergies REASON FOR VISIT Neck pain, Left upper extremity pain, Headaches Medications Medication SIG (Take, Route, Frequency, Duration) [...] ast year? No Points 0 Interpretation Negative Vital Signs Height 67 in 03/11/2024 Weight 174 lbs 03/11/2024 BMI 27.25 kg/m2 03/11/2024 Blood pressure systolic 142 mm Hg 03/11/20 24 Blood pressure diastolic 82 mm Hg 024 Encounters Encounter Location Date Provider Diagnosis [facility] [address] [place] [address] 03/11/2024 Mick William Cervicalgia M54.2 ; Dorsalgia, unspecified M54.9 and Cervicogenic headache G44.86 Assessments Encounter Date Diagnosis (ICD Code) Assessment Notes Treatment Notes Treatment Clinical Notes Section Notes 03/11/2024 Cervicalgia (ICD-10 - M54.2) 1. The [...] 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 03/11/2024 Dorsalgia, unspecified (ICD-10 - M54.9) 1. [...] 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 03/11/2024 Cervicogenic headache (ICD-10 - G44.86) 1. [...] 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 03/11/2024 Other I, Tejas Oliver, am serving [...] 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 Plan Of Treatment Treatment Notes Assessment Notes Other I, Tejas Oliver , am serving as a scribe to [...] performed and the decisions made by me. Next Appt Details Follow Up: prn, Reason: Progress Notes * Pernell LOPEZB:1965 (4 0 yo F)Acc No.[id number]:03/11/2024 Follow Up Patient: Elizabeth TOWNSEND Provider: Keith William MD :1965 A ge:58 Y S ex:Female Date:03/11/2024 Phone: Address:[address] , [id number] Pcp:Hayden Angelo MD Subjective: * Chief Complaints: * N shanti painLeft upper extremity painHeadaches * HPI: C linic visit: Elizabeth bonilla s a pleasant 58 year-old female who returns to clinic today for follow-up evaluation regarding symptoms secondary to a work injury dated 0 06/11/2017, however reports a new claim has been approved secondary to a work injury dated 12/27/2023. T he patient has completed 23 visits of therapy here at [facility]. She rates her pain as a 4/10 on the numeric scale today. She endorses neck pain, left upper extremity pain, and headaches in the interim. Regarding procedures, she recently underwent a C6-7 EDWARDO with a catheter to C4 using a left paramedian approach on 03/02/[address] Carlos Duncan MD [facility] of [facility]. She reports moderate relief in the first hour along with an increased range of motion in her cervical spine. In respect to alternative therapies, she continues to see Elaine elizabeth DC of [facility] personal care worker three times a week. She reports she has not been able to proceed with acupuncture therapy at this time. Cervical extension and cervical rotation are the pieces of MedX equipment the patient is utilizing in therapy. She is making objectively measured strength gains in the equipment. For example, the patient most recently generated 192 in-lbs of resistance in the cervical extension piece of MedX equipment. She began therapy generating 96 in-lbs of resistance. Her resistance goal range as calculated by the therapists is 192-222 in lbs. In addition, she most recently generated 64 in-lbs of resistance in the cervical rotation piece of MedX equipment. She began therapy generating 22 in-lbs of resistance. Her resistance goals as calculated by the therapists is 60 in lbs. In terms of total recovery score, the patient feels she is at a 4 on a 10-point scale. She reports increases in functional activities such as walking for longer durations and increased capacity for manager fraud as a result of rehabilitation therapy with MedX equipment. P QRS MEASURE: 154,155 Fall Risk H ave you had two or more falls in the past year? N o, H ave you had any falls with injury in the past year? N o, P brigitte of Care: D ocumented. D epression Screening: PHQ-9 L ittle interest or pleasure in doing things S everal days, F eeling down, depressed, or hopeless S everal days, T rouble falling or staying asleep, or sleeping too much S everal days, F eeling tired or having little energy S everal days, P oor appetite or overeating N ot at all, F eeling bad about yourself or that you are a failure, or have let yourself or your family down N ot at all, T rouble concentrating on things, such as reading the newspaper or watching television S everal days, M oving or speaking so slowly that other people could have noticed; or the opposite, being so fidgety or restless that you have been moving around a lot more than usual S everal days, T houghts that you would be better off or of hurting yourself in some way N ot at all, T otal Score 6, I nterpretation M ild Depression. I ntervention D epression Screening Findings N egative, N valent[place] of the standardized tool used for adult depression screening: P atient Health Questionnaire (PHQ-9). * ROS: G eneral/Constitutional: Chills/Fevers N o. F atigue N o. W eight gain?No. W eight loss Y es. E ndocrine: Dizziness N o. E xcessive sweating N o. W eakness N o. R espiratory: Chest pain N o. C ough N o. S hortness of breath at rest N o. G astrointestinal: Abdominal pain Y es. B lood in stool N o. C onstipation N o. D iarrhea N o. H ematology: Easy bruising N o. P rolonged bleeding N o. S wollen glands N o. M usculoskeletal: Painful joints N o. S wollen joints N o. S kin: Skin lesion(s) N o. N eurologic: Balance difficulty N o. H eadache N o. T ingling/Numbness N o. P sychiatric: Alcoholism N o. A nxiety N o. S ubstance abuse?No. * Medical History: * Surgical History: 2 C-Sections * Hospitalization/Major Diagno stic Procedure: S urgical * Family History: F ather: , diagnosed with Unspecified essential hypertension. M other: alive, diagnosed with Unspecified essential hypertension. * Social History: T obacco Use: T obacco Use/Smoking A re you a c urrent smoker, H ow often do you smoke cigarettes? e very day, H ow many cigarettes a day do you smoke? 5 or less, H ow soon after you wake up do you smoke your first cigarette? a fter 60 minutes, A re you interested in quitting? N ot ready to quit. M iscellaneous: M arital status: . D rug/Alcohol: A ALIA-C (Standard) D id you have a drink containing alcohol in the past year? N o,?Points 0 , I nterpretation N egative. * Medications: T akingMultivitamin Fish Oil Wegovy 1.7 MG/0.75ML Solution Auto-injector 0.75 mL Subcutaneous Taking Multivitamin Taking Fish Oil Taking Wegovy 1.7 MG/0.75ML Solution Auto-injector 0.75 mL Subcutaneous Not-Taking/PRNMeloxicam 15 MG Tablet 1 tablet with food Orally Once a day , Notes to Pharmacist: Do not take with ibuprofen and naproxentiZANidine HCl 4 MG Tablet 0.5-2 tablets as needed Orally Before bed Medication List reviewed and reconciled with the patientNot-Taking/PRN Meloxicam 15 MG Tablet 1 tablet with food Orally Once a day , Notes to Pharmacist: Do not take with ibuprofen and naproxenNot-Taking/PRN tiZANidine HCl 4 MG Tablet 0.5-2 tablets as needed Orally Before bed Medication List reviewed and reconciled with the patient * Allergies: N .K.D.A.no[Allergies Verified] Objective: * Vitals: H t: 67 in, Wt:174lbs, BMI:27.25, BP:142/82mm Hg, VAS-Today:41-10, VAS-Av 1- 10, VAS-High: 6 1-10. * Examination: M usculoskeletal: Musculoskeletal: P louisa has somewhat head forward posture. She reports symptoms at left sided occiput which travel forward. Symptoms continue down to the left sided paracervical soft tissue and out into the left sided suprascapular location. Patient reports improvement in her symptoms along medial border of left scapula. Patient continues to have moderately reduced cervical range of motion. Impairment is most notable with side bending rotation left and right. Patient continues t o get symptoms that extend into the l eft sided forearm and index finger in a probable C6 nerve root pattern. Patient h as a normal bilateral upper extremity n euromuscular exam. Assessment: * Assessment: 1. C ervicalgia - M54.2 (Primary) 2 . D orsalgia, unspecified - M54.9 ? 3 . C ervicogenic headache - G44.86 1. The patient returns today for reevaluation [...] with a new work ability letter. 5. Moshe damon I was able to evaluate this patient once again. I have the following workability recommendations: A. 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 Plan: * Treatment: * Procedure Codes: * Preventive Medicine: iSpine Inventory Forms: N shanti Oswestry N DI Score (0-100) 6 4, N DI Interpretation 6 0-79 (Crippled). Counseling: B RI Care goal follow-up plan: A nyla Normal BMI Follow-up L ifestyle education regarding diet Patient declined. * Follow Up: p rn * Billing Information: * Visit Code: 88554 Established Patient level 4. * Procedure Codes: * TIONAL INSTRUCTOR Sign off status: Completed true * Provider: Keith William MD Date: 05/11/2023 Generated for Sonya mcintyre/Ludwin/Juan José on: 06/24/2023 09:23 PM VOCATIONAL INSTRUCTOR History and Physical Notes * HPI (History of Present Illness) Category Sub-Category Detail Notes Category Not es Depression Screening PHQ-9 Little inte rest or pleasure in doing things: Several days Feeling down, depressed, or hopeless: Se veral days Trouble falling or staying asleep, or sl eeping too much: Several days Feeling tired or having little energy: S everal days Poor appetite or overeating: Not at all Feeling bad about yourself o r that you are a failure, or have let yourself or your family down: Not at all Trouble concentrating on thi ngs, such as reading the newspaper or watching television: Several days Moving or speaking so slowly that other people could have noticed; or the opposite, being so fidgety or restless that you have been moving around a lot more than usual: Several days Thoughts that you would be b janice off or of hurting yourself in some way: Not at all Total Score: 6 Interpretation: Mild Depression Intervention Depression Screening Findings: N egative Name of the standardized too l used for adult depression screening:: Patient Health Questionnaire (PHQ-9) Clinic visit Elizabeth is a pleasant 58 year-old female who returns to clinic today for follow-up evaluation regarding symptoms secondary to a work injury dated 06/11/2017, however reports a new claim has been approved secondary to a work injury dated 12/27/2023. The patient has completed 23 visits of therapy here at [facility]. She rates her pain as a 4/10 on the numeric scale today. She endorses neck pain, left upper extremity pain, and headaches in the interim. Regarding procedures, she recently underwent a C6-7 EDWARDO with a catheter to C4 using a left paramedian approach on 03/02/[address] Carlos Duncan MD [facility] of [facility]. She reports moderate relief in the first hour along with an increased range of motion in her cervical spine. In respect to alternative therapies, she continues to see Dr. Merced Chappell DC of [facility] personal care worker three times a week. She reports she has not been able to proceed with acupuncture therapy at this time. Cervical extension and cervical rotation are the pieces of MedX equipment the patient is utilizing in therapy. She is making objectively measured strength gains in the equipment. For example, the patient most recently generated 192 in-lbs of resistance in the cervical extension piece of MedX equipment. She began therapy generating 96 in-lbs of resistance. Her resistance goal range as calculated by the therapists is 192-222 in lbs. In addition, she most recently generated 64 in-lbs of resistance in the cervical rotation piece of MedX equipment. She began therapy generating 22 in-lbs of resistance. Her resistance goals as calculated by the therapists is 60 in lbs. In terms of total recovery score, the patient feels she is at a 4 on a 10-point scale. She reports increases in functional activities such as walking for longer durations and increased capacity for manager fraud as a result of rehabilitation therapy with MedX equipment. PQRS MEASURE 154,155 Fall Risk Have you had t wo or more falls in the past year?: No Have you had any falls with injury in th e past year?: No Plan of Care:: Documented Examination Category Sub-Category Detail Notes Category Not es Musculoskeletal Musculoskeletal: Patient has beronica ewhat head forward posture. She reports symptoms at left sided occiput which travel forward. Symptoms continue down to the left sided paracervical soft tissue and out into the left sided suprascapular location. Patient reports improvement in her symptoms along medial border of left scapula. Patient continues to have moderately reduced cervical range of motion. Impairment is most notable with side bending rotation left and right. Patient continues to get symptoms that extend into the left sided forearm and index finger in a probable C6 nerve root pattern. Patient has a normal bilateral upper extremity neuromuscular exam
--- NOTE | 2024-05-18 08:31 | W.PM.SLEEP ---
Sleep Study Details Details Interpreting Provider: Mere Date of Sleep Study: 04/26/24 Sleep Study Details: STUDY TYPE:? Home unattended ? BMI:? 27.8 ORDERING PROVIDER:? Mere INDICATION:? Concern about sleep apnea ? SLEEP SUMMARY:? 460 minutes monitored RESPIRATORY SUMMARY:? AHI 5.3, low oxygen 79, 0.3% of study oxygen less than 90%, snoring 96.3% PERIODIC LIMB MOVEMENTS OF SLEEP:? Not recorded CARDIAC:? 64-94, mean 74.4 beats per minute IMPRESSION:? Mild obstructive sleep apnea RECOMMENDATION: If patient is symptomatic treatment options include CPAP dental appliance and/or airway expansion surgery.
== END 2024-04-26 09:42 | disposition home or self-care (01) ==
PROVIDERS: PCP Physician Assistant Medical; Visit Provider Otolaryngology
DX: G47.33 Obstructive sleep apnea (adult) (pediatric) (principal)
CPT/HCPCS: 95806

== ENCOUNTER 2024-11-15 14:35 | Outpatient (CLI) | payer BC, SELFPAY ==
--- NOTE | 2024-11-15 14:40 | CRLHL7_ITS ---
For Patients: As a result of the Century Cures Act, medical imaging exams and procedure reports are released immediately into your electronic medical record. You may view this report before your referring provider. If you have questions, please contact your health care provider. INDICATION: BILATERAL SCREENING MAMMOGRAM,ASYMPTOMATIC 59 Y/O FEMALE COMPARISON: 09/22/2023, 09/18/2022, 08/20/2021 TECHNIQUE: Digital mammogram in CC and MLO projections including computer-aided detection (CAD) and tomosynthesis. BREAST COMPOSITION: There are scattered areas of fibroglandular density. FINDINGS: No suspicious findings. ASSESSMENT: BI-RADS 1 Negative RECOMMENDATION: Annual screening mammogram. A lay language report of this examination will be provided to the patient. Dictated by: Néstor Jenkins MD @ 11/16/2024 09:54:17 (Electronically Signed)
== END 2024-11-15 14:36 | disposition home or self-care (01) ==
LOC: MAMMO 14:35
PROVIDERS: PCP Physician Assistant Medical; Visit Provider Physician Assistant Medical
DX: Z12.31 Encounter for screening mammogram for malignant neoplasm of breast (principal)
CPT/HCPCS: 77063; 77067